=== PATIENT | female | born 1990 | race Caucasian/White ===

== ENCOUNTER 2024-01-01 15:37 | Emergency (ER) | payer MEDICARE, MEDICAID, SELFPAY ==
[2024-01-01] VITALS (22 sets, daily range): BP systolic 134–155; BP diastolic 75–94; PULSE 71–103; RESP 14; TEMP 37.1; O2SAT 96–100; BMI 23.6
--- NOTE | 2024-01-01 17:38 | ED_ITS ---
HPI - General Adult General Date Seen: 01/01/24 Chief complaint: Diabetic Related Problem Stated complaint: Type 1 diabetic, high and fluctuating blood sugar Time Seen by Provider: 01/01/24 17:12 Source: patient Mode of arrival: ambulatory Limitations: no limitations History of Present Illness HPI narrative: Patient is a 33-year-old female was a type 1 diabetic presenting to the emergency department for diabetic issues. She states for the past few days she has been relatively brittle diabetic. She has insulin pump along with giving herself basal doses of insulin every day. States her blood sugars you she to between 80 and 140 with states a couple days ago she cannot get her blood sugar much higher than 100 despite he heavy carpet today. All this was little concerning for her lino think too much about it up until the next day when it continued and then last night her blood sugar suddenly jumped to 190 despite not eating any carbs that night. She checked her insulin pump and has been still given her the correct amount of insulin. This has persisted to today. 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 She continued to try and stay at home to see how she was feeling but has been having worsening nausea, which she states she does have nausea at baseline and no nausea medications help, and overall his not feeling well. She is concerned she is dehydrated. Denies headache, chest pains, shortness of breath, abdominal pains, dysuria, vaginal discharge or bleeding, weakness, numbness. No other concerns noted at this time. Related Data Home Medications ?Medication ?Instructions ?Recorded ?Confirmed blood-glucose sensor (Dexcom G6 #1 ea 03/23/23 01/01/24 Sensor device) blood-glucose transmitter (Dexcom #1 ea 03/23/23 01/01/24 G6 Transmitter device) insulin lispro 100 unit/mL 60 - 80 unit subcut DAILY 03/23/23 01/01/24 subcutaneous solution (Humalog U-100 Insulin) clonidine HCl 0.1 mg tablet 0.1 mg PO BID 01/01/24 01/01/24 lamotrigine 200 mg tablet 200 mg PO DAILY 01/01/24 01/01/24 lamotrigine 25 mg tablet mg PO 01/01/24 metoclopramide HCl 5 mg tablet 5 mg PO QID 01/01/24 01/01/24 omeprazole 40 mg capsule,delayed 40 mg PO BID 01/01/24 01/01/24 release ondansetron 4 mg disintegrating 4 mg PO Q8H PRN 01/01/24 01/01/24 tablet prochlorperazine 25 mg rectal mg ME 01/01/24 suppository spironolactone 50 mg tablet 50 mg PO QAM 01/01/24 01/01/24 Allergies Allergy/AdvReac Type Severity Reaction Status Date / Time Sulfa (Sulfonamide Allergy Verified 01/01/24 15:54 Antibiotics) Review of Systems Status of ROS: Reports: 10 or more systems reviewed and unremarkable except as noted in History and below [facility] Social History Smoking Status: Never smoker How often do you have a drink containing alcohol: 2-4 times a month AUDIT-C Alcohol total score: 2 Non-prescribed substance use: marijuana (any form) Exam Narrative: Exam Narrative: Const: Well-nourished, Well-developed, in mild distress Eyes: PERRL, no conjunctival injection, and symmetrical lids HENT: Atraumatic external nose and ears. Moist mucous membranes. Neck: Symmetric, trachea midline, No thyromegaly. CVS: RRR, No murmurs or gallops. Peripheral pulses 2+ and equal in all extremities RESP: Unlabored respiratory effort. Clear to auscultation bilaterally. GI: Nontender/Nondistended, No rebound or guarding. MSK:Extremities w/o deformity, Normal Active ROM Skin: Warm, Dry. No rashes or lesions. Neuro: Normal Muscle tone, No focal neurological deficits. Psych: Awake, Alert, & Oriented x3. Appropriate mood and affect. Const: Vital Signs, click to edit/add: Vital Signs - 24 hr 01/01/24 15:44 01/01/24 17:13 01/01/24 17:14 Temperature 98.7 F Pulse Rate 97 98 Pulse Rate [Pulse Oximeter] 97 Respiratory Rate 14 Blood Pressure 144/92 H Blood Pressure [Ri ght Upper Arm] 143/88 H Pulse Oximetry 97 100 100 01/01/24 17:15 01/01/24 17:30 01/01/24 17:31 Temperature Pulse Rate 96 103 H 99 Pulse Rate [Pulse Oximeter] Respiratory Rate Blood Pressure 146/87 H Blood Pressure [Ri ght Upper Arm] Pulse Oximetry 100 100 100 01/01/24 17:47 01/01/24 18:00 01/01/24 18:07 Temperature Pulse Rate 72 71 84 Pulse Rate [Pulse Oximeter] Respiratory Rate Blood Pressure 134/75 Blood Pressure [Ri ght Upper Arm] Pulse Oximetry 100 100 100 Course Vital Signs Vital signs: Initial Vital Signs Temperature 98.7 F 01/01/24 15:44 Temperature Source Temporal Artery Scan 01/01/24 15:44 Pulse Rate 97 01/01/24 15:44 Respiratory Rate 14 01/01/24 15:44 Blood Pressure 143/88 H 01/01/24 15:44 Blood Pressure Mean 106 H 01/01/24 15:44 Blood Pressure Position Sitting 01/01/24 15:44 Pulse Oximetry 97 01/01/24 15:44 Vital Signs Temperature 98.7 F 01/01/24 15:44 Pulse Rate 97 01/01/24 15:44 Respiratory Rate 14 01/01/24 15:44 Blood Pressure 143/88 H 01/01/24 15:44 Pulse Oximetry 97 01/01/24 15:44 Temperature 98.7 F 01/01/24 15:44 Pulse Rate 84 01/01/24 18:07 Respiratory Rate 14 01/01/24 15:44 Blood Pressure 134/75 01/01/24 18:07 Pulse Oximetry 100 01/01/24 18:07 Medications Administered Medications: Generic Name Dose Route Start Last Admin Trade Name Freq PRN Reason Stop Dose Admin Lactated Ringer's 1,000 mls @ 1,000 mls/hr 01/01/24 19:09 01/01/24 19:21 Lactated Ringers 1000 Ml IV 01/01/24 20:08 1,000 mls/hr .Q1H ONE Administration Discontinued Medications Generic Name Dose Route Start Last Admin Trade Name Freq PRN Reason Stop Dose Admin Lactated Ringer's 1,000 mls @ 1,000 mls/hr 01/01/24 17:27 01/01/24 19:15 Lactated Ringers 1000 Ml IV 01/01/24 18:26 Infused .Q1H ONE Infusion Medical Decision Making MDM Narrative Medical decision making narrative: Patient is a 33-year-old female presenting for diabetes concern about dehydration. At this time seems very unlikely she is in DKA but I will do a VBG to look at her pH. Most order BMP, CBC, urinalysis, urine test. Also give her 1 L fluids. EKG done. Based on her description it seems like all for insert is being dosed appropriately but she is just having issues with her blood sugars being all over the place. High as they have been though been 190. Lab work all returned showing no concerning abnormalities. No signs of acidosis. She does have ketones in the urine but this is expected. She is not feeling much better after the 1 L fluid so we will give another L of fluids. At this point though she is stable and has follow-up already scheduled outpatient and can be discharged. She is agreeable to this plan. Lab Data Labs: Lab Results 01/01/24 01/01/24 Range/Units 17:42 18:00 WBC 10.97 (4.50-11.00) K/uL RBC 4.68 (4.00-5.20) m/uL Hgb 13.9 (12.0-16.0) gm/dL Hct 41.3 (33.0-51.0) % MCV 88 (80-100) fL MCH 30 (26-34) pg MCHC 34 (32-36) gm/dL RDW Coeff of Cherelle 12.1 (11.5-15.5) % Plt Count 285 (140-440) K/uL Neut % (Auto) 83.5 H (42.0-72.0) % Lymph % (Auto) 11.0 L (20-44) % [place] % (Auto) 4.7 (0.0-11.0) % Eos % (Auto) 0.2 (0.0-7.0) % Baso % (Auto) 0.5 (0.0-3.0) % Neut # (Auto) 9.20 H (1.7-7.0) K/uL Lymph # (Auto) 1.20 (0.90-2.90) K/uL [place] # (Auto) 0.50 (0.00-0.90) K/UL Eos # (Auto) 0.02 (0.00-0.50) K/uL Baso # (Auto) 0.05 (0.00-0.30) K/uL Abs Immat Gran (auto) 0.01 (0.00-0.30) K/uL Imm/Tot Granulo (auto) 0.1 % VBG pH 7.321 (7.32-7.43) VBG pCO2 42 (40-50) mmHG VBG pO2 41.7 (25-47) mmHG VBG HCO3 22 (21-28) mmol/L Sodium 136 (135-149) mmol/L Potassium 4.4 (3.6-5.1) mmol/L Chloride 102 (96-114) mmol/L Carbon Dioxide 19 L (20-32) mmol/L Anion Gap 15 (7-15) mEq/L BUN 13 (5-24) mg/dL Creatinine 0.6 (0.5-1.5) mg/dL Estimated Creat Clear 137.04 Estimated GFR 123 ml/min Glucose 163 H (60-115) mg/dL Calcium 9.4 (8.4-10.6) mg/dL Magnesium 1.9 (1.5-2.6) mg/dL Urine Color Yellow (Yellow) Urine Appearance Clear (Clear) Urine pH 5.5 (5.0-8.5) Ur Specific [place] >= 1.030 (1.000-1.030) Urine Protein 1+ A (Negative) Urine Glucose (UA) Negative (Negative) Urine Ketones 4+ A (Negative) Urine Blood Trace-intact A (Negative) Urine Nitrite Negative (Negative) Urine Bilirubin 2+ A (Negative) Urine Urobilinogen 0.2 (0.2-1.0) Ur Leukocyte Esterase Negative (Negative) Urine RBC 0-2 (0-2) Urine WBC 0-2 (0-5) Ur Squamous Epith Cells None (None-Few) Urine Bacteria None (None) Urine HCG, Qual Negative (Negative) ECG Data Attestation: I personally reviewed and interpreted this ECG as follows: Prior ECG tracings: not available for review Interpretation: Normal sinus rhythm with a rate of 90 beats wound, normal intervals, normal axis, no ST or T-wave abnormalities. Discharge Plan Discharge Clinical Impression: Diabetes Qualifiers: Diabetes mellitus type: type 1 Diabetes mellitus complication status: with other specified complication Qualified Code(s): E10.69 - Type 1 diabetes mellitus with other specified complication Patient Disposition: Home, Self-Care Condition: Stable Additional Instructions: Keep your follow-up appointment with endocrinology. Return to emergency depart ment for new or worsening symptoms. Prescriptions: No Action insulin lispro [Humalog U-100 Insulin] 100 unit/mL solution 60 - 80 unit subcut DAILY (DME) Dexcom G6 Sensor Device See Rx Instructions .ROUTE Q10D Qty: 1 Rx Instructions: As directed (DME) Dexcom G6 Transmitter Device See Rx Instructions .ROUTE [id number] Qty: 1 Rx Instructions: As directed clonidine HCl 0.1 mg tablet 0.1 mg PO BID lamotrigine 200 mg tablet 200 mg PO DAILY omeprazole 40 mg capsule,delayed release(DR/EC) 40 mg PO BID lamotrigine 25 mg tablet PO metoclopramide HCl 5 mg tablet 5 mg PO QID prochlorperazine 25 mg suppository ME ondansetron 4 mg tablet,disintegrating 4 mg PO Q8H PRN spironolactone 50 mg tablet 50 mg PO QAM Follow Up/Referrals: Provider,Not a Local [Non-Staff] - Stand Alone Forms: [facility] Info Instructions
[2024-01-01 17:51] LABS: Appearance Urine Clear (Clear); Bilirubin Urine 2+ (Negative); Blood Urine Trace-intact (Negative); Color Urine Yellow (Yellow); Glucose Urine Negative (Negative); Ketones Urine 4+ (Negative); Leukocyte Esterase Urine Negative (Negative); Nitrite Urine Negative (Negative); Protein Urine 1+ (Negative); Specific Gravity Urine >= 1.030 (1.000-1.030); Urobilinogen Urine 0.2 (0.2-1.0); pH Urine 5.5 (5.0-8.5)
[2024-01-01 17:52] LABS: Ur HCG Qualitative* Negative (Negative)
[2024-01-01] MEDS: LACTATED RINGERS 1000 ML 1,000 ML IV ×2 (18:05→19:21)
[2024-01-01 18:08] LABS: HCO3 VBG 22 mmol/L (21-28); PCO2 VBG 42 mmHG (40-50); PO2 VBG 41.7 mmHG (25-47); pH VBG 7.321 (7.32-7.43)
[2024-01-01 18:09] LABS: Basophils Absolute Auto 0.05 K/uL (0.00-0.30); Basophils Percent Auto 0.5 % (0.0-3.0); Eosinophils Absolute Auto 0.02 K/uL (0.00-0.50); Eosinophils Percent Auto 0.2 % (0.0-7.0); Hematocrit 41.3 % (33.0-51.0); Hemoglobin* 13.9 gm/dL (12.0-16.0); Immature Granulocytes Abs Auto 0.01 K/uL (0.00-0.30); Immature Granulocytes Pct Auto 0.1 %; Mean Corpuscular HGB Conc 34 gm/dL (32-36); Mean Corpuscular Hemoglobin 30 pg (26-34); Mean Corpuscular Volume 88 fL (80-100); Monocytes Percent Auto 4.7 % (0.0-11.0); Neutrophils Percent Auto 83.5 % (42.0-72.0); Platelet Count* 285 K/uL (140-440); RDW Coefficient of Variation % 12.1 % (11.5-15.5); Red Blood Count 4.68 m/uL (4.00-5.20); White Blood Count* 10.97 K/uL (4.50-11.00)
[2024-01-01 18:10] LABS: Slide Review Reflex No
[2024-01-01 18:19] LABS: RBC Urine 0-2 (0-2); WBC Urine 0-2 (0-5)
[2024-01-01 18:23] LABS: Chloride* 102 mmol/L (96-114); Potassium* 4.4 mmol/L (3.6-5.1); Sodium* 136 mmol/L (135-149)
[2024-01-01 18:26] LABS: Anion Gap 15 mEq/L (7-15); Blood Urea Nitrogen* 13 mg/dL (5-24); Carbon Dioxide* 19 mmol/L (20-32); Creatinine* 0.6 mg/dL (0.5-1.5); Est. Creatinine Clearance* 137.04; Estimated Glomerular Filt Rate 123 ml/min; Glucose* 163 mg/dL (60-115)
[2024-01-01 18:27] LABS: Calcium* 9.4 mg/dL (8.4-10.6)
[2024-01-01 18:29] LABS: Magnesium* 1.9 mg/dL (1.5-2.6)
== END 2024-01-01 20:11 | disposition home or self-care (01) ==
PROVIDERS: Emergency Provider Student in an Organized Health Care Education/Training Program; PCP Family Medicine
DX: E10.69 Type 1 diabetes mellitus with other specified complication (principal)
CPT/HCPCS: 36415; 80048; 81001; 81025; 82803; 82962; 83735; 85025; 93005; 99283; 99284; J7120

== ENCOUNTER 2024-01-10 17:40 | Observation (INO) | payer MEDICARE, MEDICAID, SELFPAY ==
[2024-01-10 17:43] VITALS: BP 124/87; PULSE 118; RESP 18; TEMP 36.7; O2SAT 100; BMI 23.5
--- NOTE | 2024-01-10 18:10 | ED_ITS ---
HPI - General Adult General Chief complaint: Diabetic Related Problem Stated complaint: type 1 diabetic, very high keytones Time Seen by Provider: 01/10/24 17:49 History of Present Illness HPI narrative: Patient is a 33-year-old woman who has insulin-dependent diabetes mellitus. She uses a sensing insulin pump and has been having very retic blood sugar. Patient's case is complicated by diabetic gastroparesis which I encouraged her not to eat regularly she does not really process food very well. Patient has had no symptomatic lows no symptomatic eyes but has trouble that her low sometimes get to 60 and her highs get to 350. She states she is not she was here actually week ago and had a negative test. She has no pain polyuria polydipsia polyphagia chest pain or shortness of breath. She is otherwise feeling well but is very emotional. Related Data Home Medications ?Medication ?Instructions ?Recorded ?Confirmed blood-glucose sensor (Dexcom G6 #1 ea 03/23/23 01/01/24 Sensor device) blood-glucose transmitter (Dexcom #1 ea 03/23/23 01/01/24 G6 Transmitter device) insulin lispro 100 unit/mL 60 - 80 unit subcut DAILY 03/23/23 01/01/24 subcutaneous solution (Humalog U-100 Insulin) clonidine HCl 0.1 mg tablet 0.1 mg PO BID 01/01/24 01/01/24 lamotrigine 200 mg tablet 200 mg PO DAILY 01/01/24 01/01/24 lamotrigine 25 mg tablet mg PO 01/01/24 metoclopramide HCl 5 mg tablet 5 mg PO QID 01/01/24 01/01/24 omeprazole 40 mg capsule,delayed 40 mg PO BID 01/01/24 01/01/24 release ondansetron 4 mg disintegrating 4 mg PO Q8H PRN 01/01/24 01/01/24 tablet prochlorperazine 25 mg rectal mg [place] 01/01/24 suppository spironolactone 50 mg tablet 50 mg PO QAM 01/01/24 01/01/24 Allergies Allergy/AdvReac Type Severity Reaction Status Date / Time Sulfa (Sulfonamide Allergy Verified 01/01/24 15:54 Antibiotics) Review of Systems Status of ROS: Reports: 10 or more systems reviewed and unremarkable except as noted in History and below PFSH PFSH Social History Smoking Status: Never smoker How often do you have a drink containing alcohol: 2-4 times a month AUDIT-C Alcohol total score: 2 Non-prescribed substance use: marijuana (any form) Exam Narrative: Exam Narrative: EXAM GENERAL: Patient appears comfortable and well. EYES: No scleral icterus. LYMPH: No supraclavicular or cervical lymphadenopathy. SKIN: Visible skin seen during exam normal or with benign process only. EXT: No dependent lower extremity pedal edema. HEART: Regular rate and rhythm with no murmurs, rubs, or gallops. LUNGS: Clear to auscultation bilaterally with no crackles or wheezes. ABD: Soft, non tender, non distended. PSYCH: Good eye contact, speech is not pressured. Const: Vital Signs, click to edit/add: Vital Signs - 24 hr 01/10/24 17:43 Temperature 98.0 F Pulse Rate [Right Pulse Oximeter] 118 H Respiratory Rate 18 Blood Pressure [Ri ght Upper Arm] 124/87 Pulse Oximetry 100 Oxygen Delivery Me thod Room Air Course Course ED Course: Patient seen and examined. Basic metabolic panel UA venous blood gas and CBC pending. Vital Signs Vital signs: Initial Vital Signs Temperature 98.0 F 01/10/24 17:43 Temperature Source Temporal Artery Scan 01/10/24 17:43 Pulse Rate 118 H 01/10/24 17:43 Respiratory Rate 18 01/10/24 17:43 Blood Pressure 124/87 01/10/24 17:43 Blood Pressure Mean 99 01/10/24 17:43 Blood Pressure Position Sitting 01/10/24 17:43 Pulse Oximetry 100 01/10/24 17:43 Oxygen Delivery Method Room Air 01/10/24 17:43 Vital Signs Temperature 98.0 F 01/10/24 17:43 Pulse Rate 118 H 01/10/24 17:43 Respiratory Rate 18 01/10/24 17:43 Blood Pressure 124/87 01/10/24 17:43 Pulse Oximetry 100 01/10/24 17:43 Oxygen Delivery Method Room Air 01/10/24 17:43 Temperature 98.0 F 01/10/24 17:43 Pulse Rate 118 H 01/10/24 17:43 Respiratory Rate 18 01/10/24 17:43 Blood Pressure 124/87 01/10/24 17:43 Pulse Oximetry 100 01/10/24 17:43 Oxygen Delivery Method Room Air 01/10/24 17:43 Medical Decision Making [facility] Narrative Medical decision making narrative: Patient is a 33-year-old woman who has insulin-dependent diabetes is difficult to manage due to gastroparesis fasting and irregular use of her basal insulin. She presented week ago is somewhat acidotic at that time. She remains acidotic at this time with an anion gap of 18. This is consistent with diabetic ketoacidosis which I do not think will improve until we stop her insulin pump and start insulin drip with IV hydration. Patient will be admitted for further evaluation and treatment. Lab Data Labs: Lab Results 01/10/24 01/10/24 Range/Units 18:17 18:20 WBC 7.34 (4.50-11.00) K/uL RBC 5.08 (4.00-5.20) m/uL Hgb 14.9 (12.0-16.0) gm/dL Hct 44.6 (33.0-51.0) % MCV 88 (80-100) fL MCH 29 (26-34) pg MCHC 33 (32-36) gm/dL RDW Coeff of Cherelle 12.0 (11.5-15.5) % Plt Count 300 (140-440) K/uL Neut % (Auto) 72.5 H (42.0-72.0) % Lymph % (Auto) 18.3 L (20-44) % [place] % (Auto) 7.1 (0.0-11.0) % Eos % (Auto) 1.1 (0.0-7.0) % Baso % (Auto) 0.7 (0.0-3.0) % Neut # (Auto) 5.30 (1.7-7.0) K/uL Lymph # (Auto) 1.30 (0.90-2.90) K/uL [place] # (Auto) 0.50 (0.00-0.90) K/UL Eos # (Auto) 0.08 (0.00-0.50) K/uL Baso # (Auto) 0.05 (0.00-0.30) K/uL Abs Immat Gran (auto) 0.02 (0.00-0.30) K/uL Imm/Tot Granulo (auto) 0.3 % VBG pH 7.319 L (7.32-7.43) VBG pCO2 39 L (40-50) mmHG VBG pO2 < 30.1 (25-47) mmHG VBG HCO3 20 L (21-28) mmol/L Sodium 133 L (135-149) mmol/L Potassium 3.9 (3.6-5.1) mmol/L Chloride 98 (96-114) mmol/L Carbon Dioxide 17 L (20-32) mmol/L Anion Gap 18 H (7-15) mEq/L BUN 10 (5-24) mg/dL Creatinine 0.6 (0.5-1.5) mg/dL Estimated Creat Clear 132.11 Estimated GFR 123 ml/min Glucose 210 H (60-115) mg/dL Calcium 9.9 (8.4-10.6) mg/dL Total Bilirubin 0.9 (0.1-1.5) mg/dL AST 22 (12-35) U/L ALT 14 (4-35) U/L Alkaline Phosphatase 97 (40-150) U/L Total Protein 8.9 H (6.0-8.3) g/dL Albumin 5.5 H (3.3-5.0) g/dL Urine Color Yellow (Yellow) Urine Appearance Clear (Clear) Urine pH 6.0 (5.0-8.5) Ur Specific [place] >= 1.030 (1.000-1.030) Urine Protein 2+ A (Negative) Urine Glucose (UA) Negative (Negative) Urine Ketones 4+ A (Negative) Urine Blood Negative (Negative) Urine Nitrite Negative (Negative) Urine Bilirubin 3+ A (Negative) Urine Urobilinogen 0.2 (0.2-1.0) Ur Leukocyte Esterase Negative (Negative) Urine RBC 0-2 (0-2) Urine WBC 0-2 (0-5) Ur Squamous Epith Cells Many A (None-Few) Urine Bacteria Moderate A (None) Discharge Plan Discharge Clinical Impression: DKA (diabetic ketoacidosis) Patient Disposition: Admitted As Inpatient Condition: Stable Activity Level: Other Discharge Diet: Other Prescriptions: No Action insulin lispro [Humalog U-100 Insulin] 100 unit/mL solution 60 - 80 unit subcut DAILY (DME) Dexcom G6 Sensor Device See Rx Instructions .ROUTE Q10D Qty: 1 Rx Instructions: As directed (DME) Dexcom G6 Transmitter Device See Rx Instructions .ROUTE [id number] Qty: 1 Rx Instructions: As directed clonidine HCl 0.1 mg tablet 0.1 mg PO BID lamotrigine 200 mg tablet 200 mg PO DAILY omeprazole 40 mg capsule,delayed release(DR/EC) 40 mg PO BID lamotrigine 25 mg tablet PO metoclopramide HCl 5 mg tablet 5 mg PO QID prochlorperazine 25 mg suppository [place] ondansetron 4 mg tablet,disintegrating 4 mg PO Q8H PRN spironolactone 50 mg tablet 50 mg PO QAM Follow Up/Referrals: Delia Yu MD [Primary Care Provider] -
[2024-01-10 18:28] LABS: HCO3 VBG 20 mmol/L (21-28); PCO2 VBG 39 mmHG (40-50); PO2 VBG < 30.1 mmHG (25-47); pH VBG 7.319 (7.32-7.43)
[2024-01-10 18:30] LABS: Basophils Absolute Auto 0.05 K/uL (0.00-0.30); Basophils Percent Auto 0.7 % (0.0-3.0); Eosinophils Absolute Auto 0.08 K/uL (0.00-0.50); Eosinophils Percent Auto 1.1 % (0.0-7.0); Hematocrit 44.6 % (33.0-51.0); Hemoglobin* 14.9 gm/dL (12.0-16.0); Immature Granulocytes Abs Auto 0.02 K/uL (0.00-0.30); Immature Granulocytes Pct Auto 0.3 %; Lymphocytes Percent Auto 18.3 % (20-44); Mean Corpuscular HGB Conc 33 gm/dL (32-36); Mean Corpuscular Hemoglobin 29 pg (26-34); Mean Corpuscular Volume 88 fL (80-100); Monocytes Percent Auto 7.1 % (0.0-11.0); Neutrophils Percent Auto 72.5 % (42.0-72.0); Platelet Count* 300 K/uL (140-440); Red Blood Count 5.08 m/uL (4.00-5.20); White Blood Count* 7.34 K/uL (4.50-11.00)
[2024-01-10 18:32] LABS: Slide Review Reflex No
[2024-01-10 18:35] LABS: Appearance Urine Clear (Clear); Bilirubin Urine 3+ (Negative); Blood Urine Negative (Negative); Color Urine Yellow (Yellow); Glucose Urine Negative (Negative); Ketones Urine 4+ (Negative); Leukocyte Esterase Urine Negative (Negative); Nitrite Urine Negative (Negative); Protein Urine 2+ (Negative); Specific Gravity Urine >= 1.030 (1.000-1.030); Urobilinogen Urine 0.2 (0.2-1.0)
[2024-01-10 18:48] LABS: Albumin* 5.5 g/dL (3.3-5.0); Chloride* 98 mmol/L (96-114)
[2024-01-10 18:49] LABS: Potassium* 3.9 mmol/L (3.6-5.1); Sodium* 133 mmol/L (135-149)
[2024-01-10 18:50] LABS: Bacteria Urine Moderate; RBC Urine 0-2 (0-2); Squamous Epithelial Cell Urine Many (None-Few); WBC Urine 0-2 (0-5)
[2024-01-10 18:51] LABS: Anion Gap 18 mEq/L (7-15); Aspartate Amino Transferase* 22 U/L (12-35); Bilirubin Total* 0.9 mg/dL (0.1-1.5); Carbon Dioxide* 17 mmol/L (20-32); Creatinine* 0.6 mg/dL (0.5-1.5); Est. Creatinine Clearance* 132.11; Estimated Glomerular Filt Rate 123 ml/min; Total Protein* 8.9 g/dL (6.0-8.3)
[2024-01-10 18:52] LABS: Alanine Aminotransferase* 14 U/L (4-35); Alkaline Phosphatase* 97 U/L (40-150); Blood Urea Nitrogen* 10 mg/dL (5-24); Calcium* 9.9 mg/dL (8.4-10.6); Glucose* 210 mg/dL (60-115)
[2024-01-10 20:01] LABS: Glucose, Point-of-Care* 216 mg/dl (60-115)
[2024-01-10 20:02] VITALS: BP 120/78; PULSE 95; RESP 18; TEMP 36.7; O2SAT 100
[2024-01-10 20:04] VITALS: BP 120/78; PULSE 95; RESP 18; TEMP 36.7
[2024-01-10 21:19] VITALS: BP 137/90; PULSE 101; RESP 18; TEMP 36.6; O2SAT 96; BMI 23.7
[2024-01-10] MEDS: OMEPRAZOLE 20 MG CAPSULE DR 40 MG PO (22:08)
[2024-01-10] MEDS: METOCLOPRAMIDE 10 MG TABLET 5 MG PO (22:08)
[2024-01-10] MEDS: SODIUM CHLORIDE 0.9 % (FLUSH) 10 ML SYRINGE 5 ML IVF (22:09)
[2024-01-10] MEDS: cloNIDine HCL 0.1 MG TABLET PO (22:09)
--- NOTE | 2024-01-10 22:09 | P.IMHP_ITS ---
Hospitalist- H&P: HPI History of Present Illness Date Seen: 01/10/24 Chief complaint: type 1 diabetic, very high keytones Narrative: Lucia Villatoro is a 33 year old female with type 1 diabetes admitted through the emergency department with recent difficulties with blood sugar control and now high ketones in her urine. She reports she has a dry mouth. She has not had polyuria. She has not had recent illness, cough, fever, sore throat, nausea, vomiting, diarrhea, urinary problems. She has type 1 diabetes managed by an inventory specialist with [facility] in [place]. She has an insulin pump which she is connected to her continuous glucose monitor. She tells me these are both functioning normally. She has turned off the programming on her insulin pump because she is afraid of hypoglycemia. She tells me that all of her medical providers are concerned about hyperglycemia but she is primarily concerned about hypoglycemia. She has not had hypoglycemia symptoms. She tells me her last low blood sugar was 85 last week. She had no symptoms at that time but she typically has no symptoms of hypoglycemia. She tells me that it took 3 carbs to get her blood sugar over 100 on that occasion. For the past 2 weeks she has been eating almost no carbs. She has had a couple eggs on occasion. When I asked her why she stopped eating carbs she tells me that she is afraid of low blood sugars. She explained that if she ate her carbs then she would have to give herself extra insulin to cover the carbs. If she gave herself extra insulin then she was worried she would have hypoglycemia. She tells me that her CGM is set to alarm for a blood sugar below 100. Previous ly was set at 80. Her insulin pump program is set to keep her blood sugar at a minimum of 160 (exercise mode). She does not trust the programs to protect her from hypoglycemia. She is also concerned that it is taking too many carbs to recover from low blood sugars. When she checked her urine and found it had high ketones she was told to come to the emergency department for evaluation for suspected DKA. She reports the changes she has made over the past 2 weeks are because she has been so anxious and upset about the possibility of low blood sugars. She does have a history of diabetic complications including diabetic gastroparesis and diabetic retinopathy She has a history of anxiety, eating disorder, bipolar type 2. Medical records indicate a history of alcohol use disorder and medical cannabis use. Review of Systems Narrative: Reported palpitations. Has a Zio patch on to evaluate. PFSH [facility] Medical History (Updated 01/10/24 @ 22:45 by Lee Foster MD) Depression ?F32.A - Depression, unspecified (ICD-10) Anxiety ?F41.9 - Anxiety disorder, unspecified (ICD-10) Eating disorder ?F50.9 - Eating disorder, unspecified (ICD-10) Medical cannabis use ?Z79.899 - Other long term care phlebotomist (current) drug therapy (ICD-10) Alcohol use disorder ?F10.90 - Alcohol use, unspecified, uncomplicated (ICD-10) Hyperlipidemia ?E78.5 - Hyperlipidemia, unspecified (ICD-10) Bipolar 2 disorder ?F31.81 - Bipolar II disorder (ICD-10) Diabetic gastroparesis ?E11.43 - Type 2 diabetes mellitus with diabetic autonomic (poly)neuropathy (ICD-10) ?K31.84 - Gastroparesis (ICD-10) Diabetic retinopathy ?E11.319 - Type 2 diabetes mellitus with unspecified diabetic retinopathy without macular edema (ICD-10) Type 1 diabetes mellitus ?E10.9 - Type 1 diabetes mellitus without complications (ICD-10) Surgical History (Updated 01/10/24 @ 22:36 by Lee Foster MD) History of esophagogastroduodenoscopy (EGD) ?Z98.890 - Other specified postprocedural states (ICD-10) Social History (Updated 01/10/24 @ 22:40 by Lee Foster MD) Narrative: She lives in [place]. She drinks alcohol occasionally. Uses cannabis daily. Previously used E cigarettes. Does not currently smoke. What is your current living situation?: I presently have a place to live Problems where you live: no known problems Problems where you live details: N/A In the past 12 months, utilities in danger of being shut off: no In past 12 months, lack of transportation kept you from medical appts, meetings, work, or getting things needed for daily living: no In the past 12 mos, have been you worried that your food would run out before you had money to buy more?: never true In the past 12 mos, the food you bought just didn't last and you didn't have money to buy more?: never true Highest level of school completed/degree received: some college, no degree Smoking Status: Never smoker Do you use any of these nicotine containing products: None How often do you have a drink containing alcohol: 2-4 times a month Alcohol type: beer How often do you have six or more drinks on one occasion: Never AUDIT-C Alcohol total score: 2 Non-prescribed substance use: marijuana (any form) How often does anyone, including family, friends and others, physically hurt you : never How often does anyone, including family, friends and others, insult or talk down to you: never How often does anyone, including family, friends and others, threaten you with harm: never How often does anyone, including family, friends and others, scream or curse at you: never service: No Meds Home Medications and Allergies Home Medications ?Medication ?Instructions ?Recorded ?Confirmed ?Type blood-glucose sensor (Dexcom G6 #1 ea 03/23/23 01/01/24 History Sensor device) blood-glucose transmitter (Dexcom #1 ea 03/23/23 01/01/24 History G6 Transmitter device) insulin lispro 100 unit/mL 60 - 80 unit subcut DAILY 03/23/23 01/01/24 History subcutaneous solution (Humalog U-100 Insulin) clonidine HCl 0.1 mg tablet 0.1 mg PO BID 01/01/24 01/01/24 History lamotrigine 200 mg tablet 200 mg PO DAILY 01/01/24 01/01/24 History lamotrigine 25 mg tablet mg PO 01/01/24 History metoclopramide HCl 5 mg tablet 5 mg PO QID 01/01/24 01/01/24 History omeprazole 40 mg capsule,delayed 40 mg PO BID 01/01/24 01/01/24 History release ondansetron 4 mg disintegrating 4 mg PO Q8H PRN 01/01/24 01/01/24 History tablet prochlorperazine 25 mg rectal mg NC 01/01/24 History suppository spironolactone 50 mg tablet 50 mg PO QAM 01/01/24 01/01/24 History Allergies Allergy/AdvReac Type Severity Reaction Status Date / Time Sulfa (Sulfonamide Allergy Verified 01/01/24 15:54 Antibiotics) Exam Narrative: Exam Narrative: She is alert and appears in no distress. Intermittently tearful as she discusses her concerns about diabetes management. Speech is normal. Normal mentation and thought processes.. Mood and affect are congruent. Pleasant and cooperative. Eyes normal. Oropharynx normal. Neck is supple without mass or adenopathy. Respirations are clear to auscultation. Cardiovascular: S1, S2, regular rate and rhythm. No murmur gallop or rub. Abdomen: Bowel sounds acti ve. Abdomen is soft without tenderness. Extremities with intact pedal pulses, good perfusion, warm to touch no rash Const: Vital Signs, click to edit/add: Vital Signs - 24 hr 01/10/24 17:43 01/10/24 20:02 01/10/24 20:04 Temperature 98.0 F 98.0 F 98.0 F Pulse Rate [Left P ulse Oximeter] Pulse Rate [Right Pulse Oximeter] 118 H 95 95 Respiratory Rate 18 18 18 Blood Pressure [Ri ght Arm] Blood Pressure [Ri ght Upper Arm] 124/87 120/78 120/78 Pulse Oximetry 100 100 Oxygen Delivery Me thod Room Air Room Air 01/10/24 21:19 Temperature 97.9 F Pulse Rate [Left P ulse Oximeter] 101 H Pulse Rate [Right Pulse Oximeter] Respiratory Rate 18 Blood Pressure [Ri ght Arm] 137/90 H Blood Pressure [Ri ght Upper Arm] Pulse Oximetry 96 Oxygen Delivery Me thod Room Air Documenting provider has reviewed patient's vital signs: yes Hospitalist - H&P: Result Labs Labs: Short CBC 01/10/24 Range/Units 18:17 WBC 7.34 (4.50-11.00) K/uL Hgb 14.9 (12.0-16.0) gm/dL Hct 44.6 (33.0-51.0) % Plt Count 300 (140-440) K/uL BMP 01/10/24 18:17 Sodium 133 L Potassium 3.9 Chloride 98 Carbon Dioxide 17 L BUN 10 Creatinine 0.6 Glucose 210 H Calcium 9.9 Liver Function 01/10/24 Range/Units 18:17 Total Bilirubin 0.9 (0.1-1.5) mg/dL AST 22 (12-35) U/L ALT 14 (4-35) U/L Alkaline Phosphatase 97 (40-150) U/L Albumin 5.5 H (3.3-5.0) g/dL Urine 01/10/24 Range/Units 18:20 Urine Color Yellow (Yellow) Urine Appearance Clear (Clear) Urine pH 6.0 (5.0-8.5) Ur Specific [place] >= 1.030 (1.000-1.030) Urine Protein 2+ A (Negative) Urine Glucose (UA) Negative (Negative) ECG Attestation: I personally reviewed and interpreted this ECG as follows: (Normal electrocardiogram) ECG interpretation date: 01/10/24 Assessment and Plan Assessment and plan (1) Starvation ketoacidosis: Status: Acute (2) DKA (diabetic ketoacidosis): Status: Acute (3) Type 1 diabetes mellitus: Status: Acute (4) Ketoacidosis: Problem comment: Patient presents with ketoacidosis. I am concerned this is at least in part related to starvation but also caused by diabetes. Status: Acute Plan Patient presents with ketoacidosis. I favor this being more starvation ketoacidosis than diabetic ketoacidosis. Probably both contributing. Because of patient anxiety about any risk for hypoglycemia she has not been following her inventory specialist plan. My recommendation tonight is that we reinstitute the use of the inventory specialist plan including using the insulin pump on a program for activity with a goal of keeping the blood sugar at 160, resuming a normal diet including carbohydrates and bolus insulin based on carb counting. Plan of care is discussed with the patient and she is agreeable to this. Total Time Spent Total Time Spent: Total time spent today is 90 minutes in evaluation management and discussion with patient, her friend and other providers management of ketoacidosis and diabetes
[2024-01-10] MEDS: lamoTRIgine 25 MG TABLET 250 MG PO (22:10)
[2024-01-10 22:17] VITALS: BP 139/90; PULSE 95; RESP 18; TEMP 36.6; O2SAT 99
[2024-01-10 23:00] VITALS: PULSE 101
[2024-01-11 03:00] VITALS: BP 121/87; PULSE 96; RESP 18; TEMP 36.8; O2SAT 98
--- NOTE | 2024-01-11 04:33 | PC.NURSE ---
Addendum entered by Feng Marks RN 01/11/24 06:32: Blood glucose checked with corresponding insulin given per insulin pump 2217 - 0.109 unit (Blood glucose 162) 0057 - 0.37 unit (Blood glucose 161) 0214 - 0.69 unit (Blood glucose 168) 0316 - 0.5 unit (Blood glucose 168) 0400 - 0.75 unit (Blood glucose 157) Original Note: Shift note: [facility] on account of seeing ketones in her urine as known DM pt. Pt was alert and oriented on arrival. She stated that she has not been eat solid food for more than a week and feels anxious, nauseated, and fatigue. Pt added that she has chronic dizziness so cannot determine if dizziness on admission is related to her current state of condition. Blood sugar checked on admission was 179 and pt gave herself insulin per insulin pump order. Pt has well function insulin pump and freestyle blood glucose monitor which she manages. Blood glucose monitored hourly throughout the night and charted. Pt asked to have bread toast and peanut butter. She ended up eating 2 slides of bread toast with 1 cup of peanut butter. Due treatment given and pt finally fell asleep at 0100. Pt had tachycardia on admission but HR stabilized later during the night.
[2024-01-11 07:09] LABS: HCO3 VBG 22 mmol/L (21-28); PCO2 VBG 42 mmHG (40-50); PO2 VBG 35.1 mmHG (25-47); pH VBG 7.316 (7.32-7.43)
[2024-01-11 07:25] LABS: Chloride* 102 mmol/L (96-114); Potassium* 3.7 mmol/L (3.6-5.1); Sodium* 136 mmol/L (135-149)
[2024-01-11 07:28] LABS: Anion Gap 15 mEq/L (7-15); Blood Urea Nitrogen* 9 mg/dL (5-24); Calcium* 9.6 mg/dL (8.4-10.6); Carbon Dioxide* 19 mmol/L (20-32); Creatinine* 0.6 mg/dL (0.5-1.5); Est. Creatinine Clearance* 132.11; Estimated Glomerular Filt Rate 123 ml/min; Glucose* 112 mg/dL (60-115)
[2024-01-11 07:30] VITALS: BP 117/83; PULSE 87; RESP 18; TEMP 36.7; O2SAT 100
[2024-01-11] MEDS: ONDANSETRON 2 MG/ML inj 4 MG IVP (07:37)
[2024-01-11 07:45] VITALS: BP 117/83; PULSE 87; RESP 18; TEMP 36.7; O2SAT 100
[2024-01-11] MEDS: SPIRONOLACTONE 25 MG TABLET 50 MG PO (09:10)
[2024-01-11] MEDS: OMEPRAZOLE 20 MG CAPSULE DR 40 MG PO (09:10)
[2024-01-11] MEDS: METOCLOPRAMIDE 10 MG TABLET 5 MG PO ×2 (09:10→11:49)
[2024-01-11] MEDS: cloNIDine HCL 0.1 MG TABLET PO (09:10)
[2024-01-11] MEDS: SODIUM CHLORIDE 0.9 % (FLUSH) 10 ML SYRINGE 5 ML IVF (09:11)
[2024-01-11 10:17] VITALS: PULSE 87; RESP 18
[2024-01-11 11:21] LABS: HCO3 VBG 21 mmol/L (21-28); PCO2 VBG 38 mmHG (40-50); PO2 VBG < 30.1 mmHG (25-47); pH VBG 7.349 (7.32-7.43)
[2024-01-11 11:37] LABS: Chloride* 97 mmol/L (96-114); Potassium* 4.1 mmol/L (3.6-5.1); Sodium* 131 mmol/L (135-149)
[2024-01-11 11:39] LABS: Creatinine* 0.6 mg/dL (0.5-1.5); Est. Creatinine Clearance* 132.11; Estimated Glomerular Filt Rate 123 ml/min
[2024-01-11 11:40] LABS: Anion Gap 16 mEq/L (7-15); Blood Urea Nitrogen* 9 mg/dL (5-24); Calcium* 9.4 mg/dL (8.4-10.6); Carbon Dioxide* 18 mmol/L (20-32); Glucose* 253 mg/dL (60-115)
--- NOTE | 2024-01-11 12:19 | PM.DS1 ---
DS: Providers Provider Date Seen: 01/11/24 Date of admission: 01/10/24 20:02 Primary care physician: Delia Yu MD Admitting Clinician: Lee Foster MD Attending Physician on discharge: Esther Enrique MD Date of Discharge: 01/11/24 DS: Diagnosis Discharge Diagnosis (1) Ketoacidosis: Status: Acute Problem details: Patient presents with ketoacidosis. I am concerned this is at least in part related to starvation but also caused by diabetes. (2) Starvation ketoacidosis: Status: Acute (3) Ketosis: Status: Acute Problem details: Patient presents with ketosis. Unclear if this is primarily starvation ketosis from restricting carbohydrates and food in general verses diabetic ketoacidosis or both (4) Type 1 diabetes mellitus: Status: Acute DS: Summary Hospital Course Hospital Course: Per H&P: Lucia Villatoro is a 33 year old female with type 1 diabetes admitted through the emergency department with recent difficulties with blood sugar control and now high ketones in her urine. She reports she has a dry mouth. She has not had polyuria. She has not had recent illness, cough, fever, sore throat, nausea, vomiting, diarrhea, urinary problems. She has type 1 diabetes managed by an mechanical applications engineer with [facility] in [place]. She has an insulin pump which she is connected to her continuous glucose monitor. She tells me these are both functioning normally. She has turned off the programming on her insulin pump because she is afraid of hypoglycemia. She tells me that all of her medical providers are concerned about hyperglycemia but she is primarily concerned about hypoglycemia. She has not had hypoglycemia symptoms. She tells me her last low blood sugar was 85 last week. She had no symptoms at that time but she typically has no symptoms of hypoglycemia. She tells me that it took 3 carbs to get her blood sugar over 100 on that occasion. For the past 2 weeks she has been eating almost no carbs. She has had a couple eggs on occasion. When I asked her why she stopped eating carbs she tells me that she is afraid of low blood sugars. She explained that if she ate her carbs then she would have to give herself extra insulin to cover the carbs. If she gave herself extra insulin then she was worried she would have hypoglycemia. She tells me that her CGM is set to alarm for a blood sugar below 100. Previously was set at 80. Her insulin pump program is set to keep her blood sugar at a minimum of 160 (exercise mode). She does not trust the programs to protect her from hypoglycemia. She is also concerned that it is taking too many carbs to recover from low blood sugars. When she checked her urine and found it had high ketones she was told to come to the emergency department for evaluation for suspected DKA. She reports the changes she has made over the past 2 weeks are because she has been so anxious and upset about the possibility of low blood sugars. She does have a history of diabetic complications including diabetic gastroparesis and diabetic retinopathy She has a history of anxiety, eating disorder, bipolar type 2. Medical records indicate a history of alcohol use disorder and medical cannabis use. Overnight she has been using her insulin pump as recommended by her mechanical applications engineer. She ate peanut butter and toast last evening and had 75% of her breakfast this morning. BG has been 120-240, mostly in the 150's. She was mildly acidotic yet this morning even though BG's were consistently in the 150's overnight. She ate well this morning and BG at 11 am was 253 and she had resolution of acidosis by the time 11 am labs were drawn. I, too, favor starvation ketoacidosis instead of diabetic ketoacidosis. She again said that she was worried about hypoglycemia, although she has not had symptoms of it and her sugars at home are never below 80. We discussed her diet and she told me that she is vegetarian. She is getting very little protein in her diet. We discussed vegetarian protein sources and made a list of these for her to take a picture of to choose from and incorporate a little more protein into each meal/snack. These included: beans, lentils, tofu/soy, tempeh, quinoa, eggs, peanut butter, nuts, seeds, cheese. She agreed with outpatient plan to eat regular meals/snacks with protein and carbs, follow carb counting, follow endocrinologists recommendations for insulin regimen/pump settings and to call endocrinology on Friday to set up an appointment this week to discuss her concerns about lows and her regimen. Time Spent with Patient Time attestation: Total time spent providing and/or coordinating discharge services: Exam Narrative: Exam Narrative: General: No acute distress. Awake, alert, oriented x3. No pallor. No jaundice. Oropharynx: Clear. Mucous membranes moist. Cardiovascular: Regular rate and rhythm. No murmurs, gallops, or rubs. Respiratory: Clear to auscultation bilaterally. No wheezes or crackles. Abdomen: Bowel sounds present. Soft, nondistended, nontender. Extremities: No pedal edema. Const: Vital Signs, click to edit/add: Vital Signs - 24 hr 01/10/24 17:43 01/10/24 20:02 01/10/24 20:04 Temperature 98.0 F 98.0 F 98.0 F Pulse Rate Pulse Rate [Left P ulse Oximeter] Pulse Rate [Right Pulse Oximeter] 118 H 95 95 Respiratory Rate 18 18 18 Blood Pressure [Ri ght Arm] Blood Pressure [Ri ght Upper Arm] 124/87 120/78 120/78 Pulse Oximetry 100 100 Oxygen Delivery Al thod Room Air Room Air 01/10/24 21:19 01/10/24 22:17 01/10/24 22:17 Temperature 97.9 F 97.9 F Pulse Rate Pulse Rate [Left P ulse Oximeter] 101 H 95 95 Pulse Rate [Right Pulse Oximeter] Respiratory Rate 18 18 18 Blood Pressure [Ri ght Arm] 137/90 H 139/90 H Blood Pressure [Ri ght Upper Arm] Pulse Oximetry 96 99 Oxygen Delivery Me thod Room Air Room Air 01/10/24 23:00 01/11/24 03:00 01/11/24 07:30 Temperature 98.3 F 98.1 F Pulse Rate 101 H Pulse Rate [Left P ulse Oximeter] 96 87 Pulse Rate [Right Pulse Oximeter] Respiratory Rate 18 18 Blood Pressure [Ri ght Arm] 121/87 117/83 Blood Pressure [Ri ght Upper Arm] Pulse Oximetry 98 100 Oxygen Delivery Al thod Room Air Room Air 01/11/24 07:45 01/11/24 10:17 Temperature 98.1 F Pulse Rate Pulse Rate [Left P ulse Oximeter] 87 87 Pulse Rate [Right Pulse Oximeter] Respiratory Rate 18 18 Blood Pressure [Ri ght Arm] 117/83 Blood Pressure [Ri ght Upper Arm] Pulse Oximetry 100 Oxygen Delivery Al thod Room Air DS: Data Data Completed and Pending Completed studies during hospitalization: 01/10/2024 EKG: Normal sinus rhythm, 98 beats per minute, normal EKG. Labs on day of discharge: Labs from last 24 hours 01/11/24 01/11/24 01/10/24 11:15 07:03 20:00 WBC RBC Hgb Hct MCV MCH MCHC RDW Coeff of Cherelle Plt Count Neut % (Auto) Lymph % (Auto) [place] % (Auto) Eos % (Auto) Baso % (Auto) Neut # (Auto) Lymph # (Auto) [place] # (Auto) Eos # (Auto) Baso # (Auto) Abs Immat Gran (auto) Imm/Tot Granulo (auto) VBG pH 7.349 7.316 L VBG pCO2 38 L 42 VBG pO2 < 30.1 35.1 VBG HCO3 21 22 Sodium 131 L 136 Potassium 4.1 3.7 Chloride 97 102 Carbon Dioxide 18 L 19 L Anion Gap 16 H 15 BUN 9 9 Creatinine 0.6 0.6 Estimated Creat Clear 132.11 132.11 Estimated GFR 123 123 Glucose 253 H 112 Calcium 9.4 9.6 Total Bilirubin AST ALT Alkaline Phosphatase Total Protein Albumin TSH 3.690 Urine Color Urine Appearance Urine pH Ur Specific [place] Urine Protein Urine Glucose (UA) Urine Ketones Urine Blood Urine Nitrite Urine Bilirubin Urine Urobilinogen Ur Leukocyte Esterase Urine RBC Urine WBC Ur Squamous Epith Cells Urine Bacteria POC Glucose 216 H 01/10/24 01/10/24 18:20 18:17 WBC 7.34 RBC 5.08 Hgb 14.9 Hct 44.6 MCV 88 MCH 29 MCHC 33 RDW Coeff of Cherelle 12.0 Plt Count 300 Neut % (Auto) 72.5 H Lymph % (Auto) 18.3 L [place] % (Auto) 7.1 Eos % (Auto) 1.1 Baso % (Auto) 0.7 Neut # (Auto) 5.30 Lymph # (Auto) 1.30 [place] # (Auto) 0.50 Eos # (Auto) 0.08 Baso # (Auto) 0.05 Abs Immat Gran (auto) 0.02 Imm/Tot Granulo (auto) 0.3 VBG pH 7.319 L VBG pCO2 39 L VBG pO2 < 30.1 VBG HCO3 20 L Sodium 133 L Potassium 3.9 Chloride 98 Carbon Dioxide 17 L Anion Gap 18 H BUN 10 Creatinine 0.6 Estimated Creat Clear 132.11 Estimated GFR 123 Glucose 210 H Calcium 9.9 Total Bilirubin 0.9 AST 22 ALT 14 Alkaline Phosphatase 97 Total Protein 8.9 H Albumin 5.5 H TSH Urine Color Yellow Urine Appearance Clear Urine pH 6.0 Ur Specific [place] >= 1.030 Urine Protein 2+ A Urine Glucose (UA) Negative Urine Ketones 4+ A Urine Blood Negative Urine Nitrite Negative Urine Bilirubin 3+ A Urine Urobilinogen 0.2 Ur Leukocyte Esterase Negative Urine RBC 0-2 Urine WBC 0-2 Ur Squamous Epith Cells Many A Urine Bacteria Moderate A POC Glucose Preliminary micro results at discharge 01/10/24 18:20 Urine Culture - Preliminary Urine Random Culture in Progress Discharge Plan Discharge Disposition: Home, Self-Care Date of Admission: 01/10/24 20:02 Attending Provider on Discharge: Esther Enrique Primary Care Provider: Delia Yu I Condition: Stable Anticipated Discharge Date/Time: 01/11/24 12:21 Discharge Medications: Continued insulin lispro [Humalog U-100 Insulin] 100 unit/mL solution 60 - 80 unit subcut DAILY (DME) Dexcom G6 Sensor Device See Rx Instructions .ROUTE [id number] Qty: 1 Rx Instructions: As directed (DME) Dexcom G6 Transmitter Device See Rx Instructions .ROUTE [id number] Qty: 1 Rx Instructions: As directed clonidine HCl 0.1 mg tablet 0.1 mg PO BID lamotrigine 200 mg tablet 200 mg PO HS Rx Instructions: plus 50 mg dose omeprazole 40 mg capsule,delayed release(DR/EC) 40 mg PO BID lamotrigine 25 mg tablet PO metoclopramide HCl 5 mg tablet 5 mg PO QID prochlorperazine 25 mg suppository NM ondansetron 4 mg tablet,disintegrating 4 mg PO Q8H PRN spironolactone 50 mg tablet 50 mg PO QAM clindamycin phosphate 1 % lotion 1 applic topical QAM Discharge Orders: Discharge Order (Routine); Ordered 01/11/24 Ordered By: Esther Enrique Additional Instructions: Endocrinology this week Activity Level: No Restrictions Discharge Diet: Diabetic Diet Detail: Try to get some protein with each meal. Carb count as per instructions from your mechanical applications engineer Follow Up Appointments: Delia Yu MD [Primary Care Provider] - (5-7 days) Forms: [facility] Info Instructions
[2024-01-11 12:26] VITALS: BP 146/93; PULSE 100; RESP 18; TEMP 36.8; O2SAT 99
--- NOTE | 2024-01-11 14:07 | PC.NURSE ---
End of Shift: Patient pleasant and cooperative, A&O. VSS, afebrile. Blood glucose monitored this shift via CGM, with insulin corrections as needed via insulin pump. Tolerating regular diet. Independent in room. IV removed with tip intact. Discharge instructions provided, all questions answered. Discharged to home at 1402.
== END 2024-01-11 14:02 | disposition home or self-care (01) ==
LOC: ED 19:16 → MEDSURG 20:03
PROVIDERS: Family Medicine; Admitting Provider Family Medicine; Emergency Provider Internal Medicine; PCP Family Medicine; Visit Provider Family Medicine
DX: E87.29 Other acidosis (principal); T73.0XXA Starvation, initial encounter; E88.89 Other specified metabolic disorders; R82.998 Other abnormal findings in urine; R82.4 Acetonuria; R68.2 Dry mouth, unspecified; K31.84 Gastroparesis; E10.9 Type 1 diabetes mellitus without complications; E78.5 Hyperlipidemia, unspecified; F31.81 Bipolar II disorder; Z68.23 Body mass index [BMI] 23.0-23.9, adult; F50.9 Eating disorder, unspecified; F12.90 Cannabis use, unspecified, uncomplicated; F10.90 Alcohol use, unspecified, uncomplicated; F41.9 Anxiety disorder, unspecified; K21.9 Gastro-esophageal reflux disease without esophagitis; Z79.4 Long term (current) use of insulin; Z79.899 Other long term (current) drug therapy; Z96.41 Presence of insulin pump (external) (internal); Z98.890 Other specified postprocedural states
CPT/HCPCS: 36415; 80048; 80053; 81001; 81003; 82803; 82947; 82962; 84443; 85025; 87086; 96374; 99283; 99284; G0378; A9270; J2405

== ENCOUNTER 2024-01-29 08:49 | Outpatient (CLI) | payer MEDICARE, MEDICAID, SELFPAY ==
--- NOTE | 2024-01-29 09:15 | CRLHL7_ITS ---
For Patients: As a result of the 21st Century Cures Act, medical imaging exams and procedure reports are released immediately into your electronic medical record. You may view this report before your referring provider. If you have questions, please contact your health care provider. INDICATION: Nausea, gastroparesis, diabetes type 1 COMPARISON 01/08/2023 TECHNIQUE 1.1 mCi Tc99m sulfur colloid in standard egg meal PO. Images of the stomach and abdomen were obtained in the anterior and posterior projection over 240 minutes. FINDINGS T 1/2 greater than 120 minutes. Geometric Mean Calculated % Activity Remainin minutes 100% 30 minutes 93% 60 minutes 97% 90 minutes 95% 120 minutes 89% 240 minutes 24% IMPRESSION Delayed gastric emptying is present with greater than 40 percent remaining at 120 minutes and greater than 10 percent remaining at 240 minutes. Also, T1/2 < 120 minutes. Previously, the T 1/2 was 94 minutes. Gastroparesis is more prominent when compared to the prior study. Dictated by Raheem Woods MD @ 01/30/2024 12:44:57 PM (Electronically Signed)
== END 2024-01-29 08:50 | disposition home or self-care (01) ==
LOC: NM 08:50
PROVIDERS: PCP Family Medicine; Visit Provider Internal Medicine Gastroenterology
DX: R11.0 Nausea (principal); K31.84 Gastroparesis
CPT/HCPCS: 78264; A9541

== ENCOUNTER 2024-02-11 14:43 | Inpatient (IN) | payer MEDICARE, MEDICAID, SELFPAY ==
[2024-02-11] VITALS (10 sets, daily range): BP systolic 90–135; BP diastolic 53–91; PULSE 94–124; RESP 16–20; TEMP 36.4–37.1; O2SAT 96–100; BMI 23.6
--- NOTE | 2024-02-11 14:57 | ED.GENADULT ---
HPI - General Adult General Time Seen by Provider: 14:57 Date Seen: 02/11/24 Chief complaint: Diabetic Related Problem Stated complaint: Type 1 diabetic w/ketones, vomiting Time Seen by Provider: 02/11/24 14:56 Source: patient and RN notes reviewed Mode of arrival: ambulatory Limitations: no limitations History of Present Illness HPI narrative: This patient is ambulatory into the ED presenting with nausea/vomiting in the setting of type 1 diabetes with increased ketones. She has underlying diabetic gastro paresis and has baseline problems with oral intake. Today she woke up and states she really just did not feel good. She has felt nauseated, has not been able to eat anything. Her sugars are running in the 300s despite her basal insulin. She states she could use some extra insulin. She is very fearful of having hypoglycemia. She is having no significant abdominal pain, no fevers chills, no changes in urination with concerns for any UTI symptoms, has not been sick with cough or cold symptoms. She is not having any diarrhea. She has had diabetic ketoacidosis before. She has a virtual consult with the physician tomorrow whom is a surgeon, they are evaluating her for putting in a stimulator for her gastroparesis. Her mouth feels dry, she cannot quench her thirst but if she does drink, she is throwing up. She feels lightheaded and dizzy, notes her heart rate is up. She just had a large volume liquid emesis prior to my coming in. Related Data Home Medications ?Medication ?Instructions ?Recorded ?Confirmed blood-glucose sensor (Dexcom G6 #1 ea 03/23/23 01/01/24 Sensor device) blood-glucose transmitter (Dexcom #1 ea 03/23/23 01/01/24 G6 Transmitter device) insulin lispro 100 unit/mL 60 - 80 unit subcut DAILY 03/23/23 02/11/24 subcutaneous solution (Humalog U-100 Insulin) clonidine HCl 0.1 mg tablet 0.1 mg PO BID 01/01/24 02/11/24 lamotrigine 200 mg tablet 200 mg PO HS 01/01/24 02/11/24 lamotrigine 25 mg tablet 50 mg PO HS 01/01/24 02/11/24 ondansetron 4 mg disintegrating 4 mg PO Q8H PRN 01/01/24 02/11/24 tablet spironolactone 50 mg tablet 50 mg PO QAM 01/01/24 02/11/24 clindamycin phosphate 1 % lotion 1 applic topical QAM 01/11/24 02/11/24 promethazine 12.5 mg tablet 12.5 mg PO QID 02/11/24 02/11/24 tretinoin 0.05 % topical cream 1 applic topical QPM 02/11/24 02/11/24 (Retin-A) Allergies Allergy/AdvReac Type Severity Reaction Status Date / Time Sulfa (Sulfonamide Allergy Verified 02/11/24 14:53 Antibiotics) Review of Systems Status of ROS: Reports: 6 or more systems reviewed and unremarkable except as noted in History and below [facility] Medical History Diabetes ?E11.9 - Type 2 diabetes mellitus without complications (ICD-10) Depression ?F32.A - Depression, unspecified (ICD-10) Anxiety ?F41.9 - Anxiety disorder, unspecified (ICD-10) Eating disorder ?F50.9 - Eating disorder, unspecified (ICD-10) Medical cannabis use ?Z79.899 - Other half-way (current) drug therapy (ICD-10) Alcohol use disorder ?F10.90 - Alcohol use, unspecified, uncomplicated (ICD-10) Hyperlipidemia ?E78.5 - Hyperlipidemia, unspecified (ICD-10) Bipolar 2 disorder ?F31.81 - Bipolar II disorder (ICD-10) Diabetic gastroparesis ?E11.43 - Type 2 diabetes mellitus with diabetic autonomic (poly)neuropathy (ICD-10) ?K31.84 - Gastroparesis (ICD-10) Diabetic retinopathy ?E11.319 - Type 2 diabetes mellitus with unspecified diabetic retinopathy without macular edema (ICD-10) Type 1 diabetes mellitus ?E10.9 - Type 1 diabetes mellitus without complications (ICD-10) Surgical History History of esophagogastroduodenoscopy (EGD) ?Z98.890 - Other specified postprocedural states (ICD-10) Social History Narrative: She lives in [place]. She drinks alcohol occasionally. Uses cannabis daily. Previously used E cigarettes. Does not currently smoke. What is your current living situation?: I presently have a place to live Problems where you live: no known problems Problems where you live details: N/A In the past 12 months, utilities in danger of being shut off: no In the past 12 mos, have been you worried that your food would run out before you had money to buy more?: never true In the past 12 mos, the food you bought just didn't last and you didn't have money to buy more?: never true Highest level of school completed/degree received: some college, no degree Smoking Status: Never smoker Do you use any of these nicotine containing products: None How often do you have a drink containing alcohol: 2-4 times a month Alcohol type: beer How often do you have six or more drinks on one occasion: Never AUDIT-C Alcohol total score: 2 Non-prescribed substance use: marijuana (any form) How often does anyone, including family, friends and others, physically hurt you: never How often does anyone, including family, friends and others, insult or talk down to you: never How often does anyone, including family, friends and others, threaten you with harm: never How often does anyone, including family, friends and others, scream or curse at you: never service: No Exam Const: Vital Signs, click to edit/add: Vital Signs - 24 hr 02/11/24 14:48 Temperature 97.6 F Pulse Rate [Pulse Oximeter] 124 H Respiratory Rate 16 Blood Pressure [Ri ght Upper Arm] 113/76 Pulse Oximetry 98 Oxygen Delivery Me thod Room Air This 33-year-old female is alert, interactive, ambulatory in the ED. She looks pale but sclera clear, conjugate gaze. Dry tongue but lips are not cracked or dry. Symmetrical facial function, speech is normal. Neck thin without any GI giving stanchion. Lungs are clear, good air entry, no wheezing or crackles. CV fast but regular, no murmur noted, normal S1-S2. Abdomen is soft, nontender, nondistended. Bowel sounds are present but distant and sparse. Documenting provider has reviewed patient's vital signs: yes Course Course ED Course: Will obtain urinalysis, venous blood gas in appropriate labs. We will initiate an IV, a L of IV fluids. She does state Zofran IV sometimes will help her symptoms, we will give 4 mg IV Zofran. Discussed with her monitor still showing the sugar at 370 despite her basal insulin, she likely needs a bolus. She is quite fearful of a significant amount of insulin, fearful will give her hypoglycemia, she states takes her for ever to rebound back from hypoglycemia. We agreed on 4 units of regular insulin. We can monitor her and maybe give her some smaller boluses of insulin. Given this patient's history, this is likely nutritional and decreased oral intake. Need to consider possibility of infection, will review labs. She really has no specific source other than stating she did not feel well this morning. Will get influenza and COVID on her. Abdominal exam is reassuring, does not seem to be tender. Reevaluation(s) Time of Reevaluation #1: 16:21 Reevaluation #1: Went to discuss with patient starting an insulin drip. She states she has been tracking her monitor, with IV fluids in the regular insulin, her sugar is trending down. Her monitor had a value of 304, she did an Accu-Chek while I was in there, it is 301. Thus she is trending down. She is just about finished with her 1 L of fluids, 2 L is in there and ready to be started. Will continue to monitor her, at this time I think we can do p.r.n. IV boluses of insulin and let her keep her basal rate going. I do think she needs to come into the hospital given her labs as she is in DKA. Will talk to the hospitalist. Consultations Consultation #1: Have reviewed with the hospitalist Becky Werner, reviewed that this patient has DKA. Her sugars are improving, patient does not want start an insulin drip, I think with her recent glucoses and her monitor show she has trending down with the IV fluids and simple 1st bolus of 4 units regular, she can maintain on her baseline insulin and p.r.n. doses of IV insulin can be used. Patient really actually does look quite good, looks like she has already feeling better with some IV fluids. Time: 16:30 Vital Signs Vital signs: Initial Vital Signs Temperature 97.6 F 02/11/24 14:48 Temperature Source Temporal Artery Scan 02/11/24 14:48 Pulse Rate 124 H 02/11/24 14:48 Respiratory Rate 16 02/11/24 14:48 Blood Pressure 113/76 02/11/24 14:48 Blood Pressure Mean 88 02/11/24 14:48 Blood Pressure Position Sitting 02/11/24 14:48 Pulse Oximetry 98 02/11/24 14:48 Oxygen Delivery Method Room Air 02/11/24 14:48 Vital Signs Temperature 97.6 F 02/11/24 14:48 Pulse Rate 124 H 02/11/24 14:48 Respiratory Rate 16 02/11/24 14:48 Blood Pressure 113/76 02/11/24 14:48 Pulse Oximetry 98 02/11/24 14:48 Oxygen Delivery Method Room Air 02/11/24 14:48 Temperature 97.6 F 02/11/24 14:48 Pulse Rate 124 H 02/11/24 14:48 Respiratory Rate 16 02/11/24 14:48 Blood Pressure 113/76 02/11/24 14:48 Pulse Oximetry 98 02/11/24 14:48 Oxygen Delivery Method Room Air 02/11/24 14:48 Medications Administered Medications: Discontinued Medications Generic Name Dose Route Start Last Admin Trade Name Freq PRN Reason Stop Dose Admin Sodium Chloride 1,000 mls @ 1,000 mls/hr 02/11/24 15:01 02/11/24 15:24 0.9 % Sodium Chloride 1000 Ml IV 02/11/24 16:00 1,000 mls/hr .Q1H MAURILIO Administration Insulin Human Regular 4 unit 02/11/24 15:09 02/11/24 15:35 Insulin Regular, Human 100 Unit/Ml Vial IVP 02/11/24 15:10 4 unit ONCE ONE Administration Ondansetron HCl 4 mg 02/11/24 15:09 02/11/24 15:35 Ondansetron 2 Mg/Ml Inj IVP 02/11/24 15:10 4 mg ONCE ONE Administration Medical Decision Making Lab Data Lab results reviewed: Yes I reviewed the patient's lab results Labs: Lab Results 02/11/24 02/11/24 02/11/24 Range/Units 15:10 15:15 15:40 WBC 14.28 H (4.50-11.00) K/uL RBC 5.38 H (4.00-5.20) m/uL Hgb 15.9 (12.0-16.0) gm/dL Hct 48.1 (33.0-51.0) % MCV 89 (80-100) fL MCH 30 (26-34) pg MCHC 33 (32-36) gm/dL RDW Coeff of Cherelle 12.3 (11.5-15.5) % Plt Count 400 (140-440) K/uL Neut % (Auto) 94.7 H (42.0-72.0) % Lymph % (Auto) 3.4 L (20-44) % Stanley % (Auto) 1.4 (0.0-11.0) % Eos % (Auto) 0.0 (0.0-7.0) % Baso % (Auto) 0.4 (0.0-3.0) % Neut # (Auto) 13.50 H (1.7-7.0) K/uL Lymph # (Auto) 0.50 L (0.90-2.90) K/uL Stanley # (Auto) 0.20 (0.00-0.90) K/UL Eos # (Auto) 0.00 (0.00-0.50) K/uL Baso # (Auto) 0.10 (0.00-0.30) K/uL Abs Immat Gran (auto) 0.00 (0.00-0.30) K/uL Imm/Tot Granulo (auto) 0.1 % VBG pH 7.146 L* (7.32-7.43) VBG pCO2 35 L (40-50) mmHG VBG pO2 < 30.1 (25-47) mmHG VBG HCO3 12 L (21-28) mmol/L Sodium 134 L (135-149) mmol/L Potassium 4.4 (3.6-5.1) mmol/L Chloride 95 L (96-114) mmol/L Carbon Dioxide 10 L (20-32) mmol/L Anion Gap 29 H (7-15) mEq/L BUN 15 (5-24) mg/dL Creatinine 0.7 (0.5-1.5) mg/dL Estimated Creat Clear 117.47 Estimated GFR 119 ml/min Glucose 437 H* (60-115) mg/dL Lactate 3.3 H (0.5-1.9) mmol/L Calcium 10.2 (8.4-10.6) mg/dL Total Bilirubin 0.8 (0.1-1.5) mg/dL AST 29 (12-35) U/L ALT 24 (4-35) U/L Alkaline Phosphatase 121 (40-150) U/L Troponin I < 0.01 L (0.01-0.04) ng/mL Total Protein 9.5 H (6.0-8.3) g/dL Albumin 5.8 H (3.3-5.0) g/dL Urine Color Yellow (Yellow) Urine Appearance Clear (Clear) Urine pH 5.5 (5.0-8.5) Ur Specific [place] 1.025 (1.000-1.030) Urine Protein 1+ A (Negative) Urine Glucose (UA) 2+ A (Negative) Urine Ketones 4+ A (Negative) Urine Blood Negative (Negative) Urine Nitrite Negative (Negative) Urine Bilirubin Negative (Negative) Urine Urobilinogen 0.2 (0.2-1.0) Ur Leukocyte Esterase Negative (Negative) Urine RBC 0-2 (0-2) Urine WBC 0-2 (0-5) Ur Squamous Epith Cells None (None-Few) Urine Bacteria None (None) SARS-CoV-2 (PCR) Negative SARS-CoV-2 (Negative) Influenza Type A (PCR) Negative PCR FLU A (Negative) Influenza Type B (PCR) Negative PCR FLU B (Negative) ECG Data Attestation: I personally reviewed and interpreted this ECG as follows: (Sinus tachycardia, 109 beats per minute. Some artifact. No definitive ischemia or infarct.) Prior ECG tracings: available for review Discharge Plan Discharge Clinical Impression: DKA, type 1 Qualifiers: Diabetes mellitus complication detail: without coma Qualified Code(s): E10.10 - Type 1 diabetes mellitus with ketoacidosis without coma Patient Disposition: Admitted As Observation
[2024-02-11 15:17] LABS: Appearance Urine Clear (Clear); Bilirubin Urine Negative (Negative); Blood Urine Negative (Negative); Color Urine Yellow (Yellow); Glucose Urine 2+ (Negative); Ketones Urine 4+ (Negative); Leukocyte Esterase Urine Negative (Negative); Nitrite Urine Negative (Negative); Protein Urine 1+ (Negative); Specific Gravity Urine 1.025 (1.000-1.030); Urobilinogen Urine 0.2 (0.2-1.0); pH Urine 5.5 (5.0-8.5)
[2024-02-11 15:21] LABS: HCO3 VBG 12 mmol/L (21-28); Lactate* 3.3 mmol/L (0.5-1.9); PCO2 VBG 35 mmHG (40-50); PO2 VBG < 30.1 mmHG (25-47)
[2024-02-11 15:23] LABS: pH VBG 7.146 (7.32-7.43)
[2024-02-11] MEDS: 0.9 % SODIUM CHLORIDE 1000 ml 1,000 ML IV ×3 (15:24→18:55)
[2024-02-11 15:34] LABS: Basophils Percent Auto 0.4 % (0.0-3.0); Hematocrit 48.1 % (33.0-51.0); Hemoglobin* 15.9 gm/dL (12.0-16.0); Immature Granulocytes Pct Auto 0.1 %; Lymphocytes Percent Auto 3.4 % (20-44); Mean Corpuscular HGB Conc 33 gm/dL (32-36); Mean Corpuscular Hemoglobin 30 pg (26-34); Mean Corpuscular Volume 89 fL (80-100); Monocytes Percent Auto 1.4 % (0.0-11.0); Neutrophils Percent Auto 94.7 % (42.0-72.0); Platelet Count* 400 K/uL (140-440); RDW Coefficient of Variation % 12.3 % (11.5-15.5); Red Blood Count 5.38 m/uL (4.00-5.20); White Blood Count* 14.28 K/uL (4.50-11.00)
[2024-02-11] MEDS: INSULIN REGULAR, HUMAN 100 UNIT/ML VIAL IVP (15:35)
[2024-02-11] MEDS: ONDANSETRON 2 MG/ML inj 4 MG IVP (15:35)
[2024-02-11 15:36] LABS: RBC Urine 0-2 (0-2); WBC Urine 0-2 (0-5)
[2024-02-11 15:40] LABS: Albumin* 5.8 g/dL (3.3-5.0)
[2024-02-11 15:41] LABS: Chloride* 95 mmol/L (96-114); Potassium* 4.4 mmol/L (3.6-5.1); Sodium* 134 mmol/L (135-149)
[2024-02-11 15:43] LABS: Anion Gap 29 mEq/L (7-15); Aspartate Amino Transferase* 29 U/L (12-35); Bilirubin Total* 0.8 mg/dL (0.1-1.5); Carbon Dioxide* 10 mmol/L (20-32); Creatinine* 0.7 mg/dL (0.5-1.5); Est. Creatinine Clearance* 117.47; Estimated Glomerular Filt Rate 119 ml/min
[2024-02-11 15:44] LABS: Alanine Aminotransferase* 24 U/L (4-35); Alkaline Phosphatase* 121 U/L (40-150); Blood Urea Nitrogen* 15 mg/dL (5-24); Calcium* 10.2 mg/dL (8.4-10.6); Total Protein* 9.5 g/dL (6.0-8.3)
[2024-02-11 15:55] LABS: Glucose* 437 mg/dL (60-115); Slide Review Reflex No
[2024-02-11 15:56] LABS: Troponin I* < 0.01 ng/mL (0.01-0.04)
[2024-02-11 16:26] LABS: PCR FLU A Negative PCR FLU A (Negative); PCR FLU B Negative PCR FLU B (Negative); SARS PCR* Negative SARS-CoV-2 (Negative)
[2024-02-11] MEDS: PROCHLORPERAZINE 5 MG/ML VIAL IV (18:07)
[2024-02-11] MEDS: 0.9 % SODIUM CHLORIDE 1000 ml 1,000 ML 75 ML IV (18:07)
--- NOTE | 2024-02-11 18:19 | PM.IMHP1 ---
Hospitalist- H&P: HPI History of Present Illness Date Seen: 02/11/24 Chief complaint: Type 1 diabetic w/ketones, vomiting Narrative: Lucia Villatoro is a 33 year old female past medical history significant for type 1 diabetes mellitus of late poorly controlled, gastroparesis, hidradenitis suppurative is admitted to the medical floor from the ED for DKA type 1 diabetes mellitus. Patient is seen with her significant other at bedside. She reports chronic nausea with vomiting in setting of gastroparesis with worsened vomiting this morning. In general, was not feeling well this morning, nauseous with vomiting, without abdominal pain. Has had a headache today. Has had episodes of dizziness, which has since improved following management in the ED. No recent fevers. Denies chest pain or shortness of breath. Denies change in stools or urination. She reports being frustrated with her diabetes being poorly managed in the setting of gastroparesis. She was recently seen by [facility] confirming gastroparesis presence. Has a virtual visit with a surgeon tomorrow, , to discuss a stimulator for her gastroparesis. In the ED, patient was reported to have an emesis of approximately 700-800 mL. Initial blood sugars 437. VBG confirms acidosis. She has a leukocytosis and an elevated lactate in the setting of DKA. Patient is admitted for DKA management. She has a pump in place and does not want an insulin infusion at this point. Blood sugars have dropped below 300. She admits to being fearful of her blood sugar going too low. Her basal rate is typically 0.35, lower at bedtime. Her blood sugars have been running >275 lately. She admits to using only an additional 2-4 units daily, underdosing, in managing this. Does not smoke tobacco but does smoke marijuana which helps her nausea. Alcohol use is rare. Review of Systems Narrative: REVIEW OF SYSTEMS: Complete review of systems performed and negative unless otherwise stated in HPI or below. [facility] Medical History Gastroparesis ?K31.84 - Gastroparesis (ICD-10) Diabetes ?E11.9 - Type 2 diabetes mellitus without complications (ICD-10) Depression ?F32.A - Depression, unspecified (ICD-10) Anxiety ?F41.9 - Anxiety disorder, unspecified (ICD-10) Eating disorder ?F50.9 - Eating disorder, unspecified (ICD-10) Medical cannabis use ?Z79.899 - Other extermination inspector (current) drug therapy (ICD-10) Alcohol use disorder ?F10.90 - Alcohol use, unspecified, uncomplicated (ICD-10) Hyperlipidemia ?E78.5 - Hyperlipidemia, unspecified (ICD-10) Bipolar 2 disorder ?F31.81 - Bipolar II disorder (ICD-10) Diabetic gastroparesis ?E11.43 - Type 2 diabetes mellitus with diabetic autonomic (poly)neuropathy (ICD-10) ?K31.84 - Gastroparesis (ICD-10) Diabetic retinopathy ?E11.319 - Type 2 diabetes mellitus with unspecified diabetic retinopathy without macular edema (ICD-10) Type 1 diabetes mellitus ?E10.9 - Type 1 diabetes mellitus without complications (ICD-10) Surgical History History of esophagogastroduodenoscopy (EGD) ?Z98.890 - Other specified postprocedural states (ICD-10) Social History Narrative: She lives in [place]. She drinks alcohol occasionally. Uses cannabis daily. Previously used E cigarettes. Does not currently smoke. What is your current living situation?: I presently have a place to live Problems where you live: no known problems Problems where you live details: none In the past 12 months, utilities in danger of being shut off: no In the past 12 mos, have been you worried that your food would run out before you had money to buy more?: never true In the past 12 mos, the food you bought just didn't last and you didn't have money to buy more?: never true Highest level of school completed/degree received: some college, no degree Smoking Status: Never smoker Do you use any of these nicotine containing products: None How often do you have a drink containing alcohol: 2-3 times a week Alcohol type: beer How often do you have six or more drinks on one occasion: Never AUDIT-C Alcohol total score: 3 Non-prescribed substance use: marijuana (any form) How often does anyone, including family, friends and others, physically hurt you: never How often does anyone, including family, friends and others, insult or talk down to you: never How often does anyone, including family, friends and others, threaten you with harm: never How often does anyone, including family, friends and others, scream or curse at you: never service: No Meds Home Medications and Allergies Home Medications ?Medication ?Instructions ?Recorded ?Confirmed ?Type blood-glucose sensor (Dexcom G6 #1 ea 03/23/23 01/01/24 History Sensor device) blood-glucose transmitter (Dexcom #1 ea 03/23/23 01/01/24 History G6 Transmitter device) insulin lispro 100 unit/mL 60 - 80 unit subcut DAILY 03/23/23 02/11/24 History subcutaneous solution (Humalog U-100 Insulin) clonidine HCl 0.1 mg tablet 0.1 mg PO BID 01/01/24 02/11/24 History lamotrigine 200 mg tablet 200 mg PO HS 01/01/24 02/11/24 History lamotrigine 25 mg tablet 50 mg PO HS 01/01/24 02/11/24 History ondansetron 4 mg disintegrating 4 mg PO Q8H PRN 01/01/24 02/11/24 History tablet spironolactone 50 mg tablet 50 mg PO QAM 01/01/24 02/11/24 History clindamycin phosphate 1 % lotion 1 applic topical QAM 01/11/24 02/11/24 History promethazine 12.5 mg tablet 12.5 mg PO QID 02/11/24 02/11/24 History tretinoin 0.05 % topical cream 1 applic topical QPM 02/11/24 02/11/24 History (Retin-A) Allergies Allergy/AdvReac Type Severity Reaction Status Date / Time Sulfa (Sulfonamide Allergy Verified 02/11/24 14:53 Antibiotics) Exam Narrative: Exam Narrative: PHYSICAL EXAM General: Pleasant, tearful at times with frustration, otherwise NAD HEENT: Normocephalic, atraumatic, sclera white, EOMI, oral mucosa moist Cardiovascular: Tachycardic. No pitting edema Pulmonary: CTA bilaterally without rhonchi, rales, expiratory wheezes. No dyspnea Abdominal: Soft, nondistended, NTTP Neurological: Alert, answering questions appropriately, cranial nerves intact, no focal findings Extremities: No gross joint deformity or swelling. AROMI. Neurovascularly intact Skin: Warm, dry. Const: Vital Signs, click to edit/add: Vital Signs - 24 hr 02/11/24 14:48 02/11/24 16:29 02/11/24 16:30 Temperature 97.6 F Pulse Rate 105 H 105 H Pulse Rate [Pulse Oximeter] 124 H Pulse Rate [Right Pulse Oximeter] Respiratory Rate 16 Blood Pressure [Ri ght Arm] Blood Pressure [Ri ght Upper Arm] 113/76 Pulse Oximetry 98 100 100 Oxygen Delivery Me thod Room Air 02/11/24 17:11 02/11/24 17:11 Temperature 97.5 F L Pulse Rate Pulse Rate [Pulse Oximeter] Pulse Rate [Right Pulse Oximeter] 113 H Respiratory Rate 20 20 Blood Pressure [Ri ght Arm] 130/91 H Blood Pressure [Ri ght Upper Arm] Pulse Oximetry 99 99 Oxygen Delivery Me thod Room Air Room Air Hospitalist - H&P: Result Labs Labs: Short CBC 02/11/24 Range/Units 15:15 WBC 14.28 H (4.50-11.00) K/uL Hgb 15.9 (12.0-16.0) gm/dL Hct 48.1 (33.0-51.0) % Plt Count 400 (140-440) K/uL BMP 02/11/24 15:15 Sodium 134 L Potassium 4.4 Chloride 95 L Carbon Dioxide 10 L BUN 15 Creatinine 0.7 Glucose 437 H* Calcium 10.2 Cardiac Enzymes 02/11/24 Range/Units 15:15 Troponin I < 0.01 L (0.01-0.04) ng/mL Liver Function 02/11/24 Range/Units 15:15 Total Bilirubin 0.8 (0.1-1.5) mg/dL AST 29 (12-35) U/L ALT 24 (4-35) U/L Alkaline Phosphatase 121 (40-150) U/L Albumin 5.8 H (3.3-5.0) g/dL Urine 02/11/24 Range/Units 15:10 Urine Color Yellow (Yellow) Urine Appearance Clear (Clear) Urine pH 5.5 (5.0-8.5) Ur Specific [place] 1.025 (1.000-1.030) Urine Protein 1+ A (Negative) Urine Glucose (UA) 2+ A (Negative) ECG Attestation: I personally reviewed and interpreted this ECG as follows: Interpretation: Sinus tachycardia, ventricular rate 109, QTC 449 Assessment and Plan Assessment and plan (1) DKA, type 1: Problem comment: -symptomatic with nausea, vomiting, tachycardia (improving), dizziness (resolved), headache -on admission WBC 14.28, lactate 3.3 -normalized to 1.3 , acidosis - VBG pH 7.146 - trending up, pCO2 35, HC03 12, anion gap 29 - trending down -has received normal saline bolus x3, continue maintenance normal saline, bolus as needed, transitioning to D5 1/2 NS following DKA protocol with glucose <200 -per DKA protocol - BMP, lactate, VBG q.4 hours, morning labs -glucose POC q.1 hour for now -continue insulin pump with basal rate, dosing p.r.n. q.3 hours Status: Acute (2) Nausea and vomiting: Problem comment: -acute on chronic, worse in setting of acute DKA -anti emetics as needed, recently started on Phenergan which makes her tired, q.i.d. Reglan not helpful -IV PPI -clear diet for now, advancing as tolerated when no further vomiting Status: Acute (3) Type 1 diabetes mellitus: Problem comment: -currently poorly managed, suspected in setting of gastroparesis, poor oral intake, recurrent nausea vomiting -reports average glucose >275 -A1c ordered Status: Acute (4) Gastroparesis: Problem comment: -with chronic nausea and vomiting -followed by [facility] -has a virtual visit on 02/12/2024 for discussion of stimulator Status: Acute Total Time Spent Total Time Spent: Total time spent caring for the patient today was 90 minutes. This includes time spent for the visit reviewing the chart, time spent during the visit, time spent after the visit and documentation and planning in coordination of care.
[2024-02-11 18:33] LABS: HCO3 VBG 13 mmol/L (21-28); Lactate* 1.3 mmol/L (0.5-1.9); PCO2 VBG 33 mmHG (40-50); PO2 VBG < 30.1 mmHG (25-47)
[2024-02-11 18:39] LABS: pH VBG 7.185 (7.32-7.43)
[2024-02-11 18:49] LABS: Chloride* 103 mmol/L (96-114)
[2024-02-11 18:50] LABS: Potassium* 4.8 mmol/L (3.6-5.1); Sodium* 133 mmol/L (135-149)
[2024-02-11 18:52] LABS: Creatinine* 0.5 mg/dL (0.5-1.5); Est. Creatinine Clearance* 164.45; Estimated Glomerular Filt Rate 129 ml/min
[2024-02-11 18:53] LABS: Anion Gap 20 mEq/L (7-15); Blood Urea Nitrogen* 12 mg/dL (5-24); Calcium* 8.8 mg/dL (8.4-10.6); Carbon Dioxide* 10 mmol/L (20-32); Glucose* 301 mg/dL (60-115); Magnesium* 1.8 mg/dL (1.5-2.6); Phosphorus* 4.2 mg/dL (2.5-4.5)
[2024-02-11] MEDS: PANTOPRAZOLE SODIUM 40 MG INJ IVP (18:54)
[2024-02-11] MEDS: ACETAMINOPHEN 500 MG TABLET 1000 MG PO (18:55)
[2024-02-11] MEDS: INSULIN ASPART 100 UNIT/ML SUBCUT (18:59)
--- NOTE | 2024-02-11 19:20 | PC.NURSE ---
Admission-1900: The patient is pleasant and alert and orientated, although noted to be anxious regarding BG levels and dropping too low. VSS on RA, noted to be tachycardic. The patient reports a headache and dizziness upon arrival to the floor. PRN TYLENOL WAS given. Nauseous as well, clear liquid diet. Up ad pati as tolerated. We are using the patients BG monitor/insulin pump to dose insulin based on BG level. BG checks q1 and insulin PRN q3. N/S bolus infusing, 3L currently for metabolic acidosis. The patient was educated to press her call button with any needs or concerns. Gale LOPEZ BSN
[2024-02-11] MEDS: 0.9 % SODIUM CHLORIDE 1000 ml 1,000 ML 125 ML IV (19:59)
--- NOTE | 2024-02-11 20:26 | PC.NURSE ---
Per Dr. Flores. Pt to use own insulin pump Q3H as necessary. She does not have to use our Ins Nov pump at this time.
[2024-02-11] MEDS: cloNIDine HCL 0.1 MG TABLET PO (21:05)
[2024-02-11] MEDS: lamoTRIgine 25 MG TABLET 50 MG PO (21:06)
[2024-02-11] MEDS: lamoTRIgine 100 MG TABLET 200 MG PO (21:07)
[2024-02-11] MEDS: SODIUM CHLORIDE 0.9 % (FLUSH) 10 ML SYRINGE 5 ML IVF (21:07)
[2024-02-11 22:28] LABS: HCO3 VBG 12 mmol/L (21-28); Lactate* 0.6 mmol/L (0.5-1.9); PCO2 VBG 29 mmHG (40-50)
[2024-02-11 22:29] LABS: pH VBG 7.238 (7.32-7.43)
[2024-02-11 22:45] LABS: Chloride* 104 mmol/L (96-114); Potassium* 4.3 mmol/L (3.6-5.1); Sodium* 130 mmol/L (135-149)
[2024-02-11 22:48] LABS: Anion Gap 15 mEq/L (7-15); Carbon Dioxide* 11 mmol/L (20-32); Creatinine* 0.5 mg/dL (0.5-1.5); Est. Creatinine Clearance* 164.45; Estimated Glomerular Filt Rate 129 ml/min
[2024-02-11 22:49] LABS: Blood Urea Nitrogen* 9 mg/dL (5-24); Calcium* 7.9 mg/dL (8.4-10.6); Glucose* 232 mg/dL (60-115)
[2024-02-11] MEDS: INSULIN PUMP (PT OWN) 1 EACH SUBCUT (22:51)
--- NOTE | 2024-02-11 23:06 | PC.NURSE ---
1.4U of Pt own insulin given at 2300. BG was 270 at that time
[2024-02-12] VITALS (8 sets, daily range): BP systolic 91–142; BP diastolic 51–87; PULSE 71–93; RESP 16; TEMP 36.4–36.8; O2SAT 97–99; BMI 24.0
[2024-02-12] MEDS: INSULIN PUMP (PT OWN) 1 EACH SUBCUT ×7 (01:56→20:45)
--- NOTE | 2024-02-12 01:58 | PC.NURSE ---
0200 BG was 238, Pt gave self 0.76u Ins.
[2024-02-12 02:27] LABS: HCO3 VBG 15 mmol/L (21-28); Lactate* 0.6 mmol/L (0.5-1.9); PCO2 VBG 35 mmHG (40-50); PO2 VBG 31.9 mmHG (25-47); pH VBG 7.252 (7.32-7.43)
[2024-02-12 02:43] LABS: Chloride* 106 mmol/L (96-114); Potassium* 4.4 mmol/L (3.6-5.1); Sodium* 132 mmol/L (135-149)
[2024-02-12 02:46] LABS: Anion Gap 13 mEq/L (7-15); Blood Urea Nitrogen* 8 mg/dL (5-24); Carbon Dioxide* 13 mmol/L (20-32); Creatinine* 0.5 mg/dL (0.5-1.5); Est. Creatinine Clearance* 164.45; Estimated Glomerular Filt Rate 129 ml/min; Glucose* 204 mg/dL (60-115)
[2024-02-12] MEDS: 0.9 % SODIUM CHLORIDE 1000 ml 1,000 ML 125 ML IV (04:19)
--- NOTE | 2024-02-12 05:04 | PC.NURSE ---
@ 0500 PT BG was 215. Gave self Ins of 0.3u.
[2024-02-12 07:25] LABS: Hematocrit 35.3 % (33.0-51.0); Hemoglobin* 11.6 gm/dL (12.0-16.0); Mean Corpuscular HGB Conc 33 gm/dL (32-36); Mean Corpuscular Hemoglobin 29 pg (26-34); Mean Corpuscular Volume 89 fL (80-100); Platelet Count* 275 K/uL (140-440); Red Blood Count 3.95 m/uL (4.00-5.20); White Blood Count* 9.64 K/uL (4.50-11.00)
[2024-02-12 07:27] LABS: Slide Review Reflex No
[2024-02-12 07:41] LABS: Chloride* 107 mmol/L (96-114); Potassium* 3.9 mmol/L (3.6-5.1); Sodium* 131 mmol/L (135-149)
[2024-02-12 07:43] LABS: Creatinine* 0.5 mg/dL (0.5-1.5); Est. Creatinine Clearance* 164.45; Estimated Glomerular Filt Rate 129 ml/min
[2024-02-12 07:44] LABS: Anion Gap 10 mEq/L (7-15); Blood Urea Nitrogen* 6 mg/dL (5-24); Calcium* 8.1 mg/dL (8.4-10.6); Carbon Dioxide* 14 mmol/L (20-32); Glucose* 182 mg/dL (60-115)
[2024-02-12 08:04] LABS: Hemoglobin A1C* 8.7 % (0-5.6)
[2024-02-12 08:10] LABS: Lab Add On Test New Spec Needed
[2024-02-12 08:21] LABS: HCO3 VBG 15 mmol/L (21-28); PCO2 VBG 32 mmHG (40-50); PO2 VBG 47.9 mmHG (25-47); pH VBG 7.267 (7.32-7.43)
[2024-02-12] MEDS: SODIUM CHLORIDE 0.9 % (FLUSH) 10 ML SYRINGE 5 ML IVF ×2 (08:41→20:41)
[2024-02-12] MEDS: ONDANSETRON 2 MG/ML inj 4 MG IVP (08:42)
[2024-02-12] MEDS: PANTOPRAZOLE SODIUM 40 MG INJ IVP (08:42)
[2024-02-12] MEDS: ACETAMINOPHEN 500 MG TABLET 1000 MG PO (08:43)
--- NOTE | 2024-02-12 10:47 | P.IMPN_ITS ---
Progress Note: A&P Assessment and plan (1) DKA, type 1: Problem details: -BG 437 and AG 29 on arrival, acidotic -gap closed hospital day 1 with improvement in symptoms and + po intake, normal K and creatinine -deferred insulin gtt given pump in place, has DexCom for monitoring Status: Acute (2) Nausea and vomiting: Problem details: -acute on chronic with history of gastroparesis worse in setting of acute DKA -anti emetics as needed, recently started on Phenergan which makes her tired, q.i.d. Reglan not helpful -IV PPI -advancing diet 02/11 Status: Acute (3) Type 1 diabetes mellitus: Problem details: -currently poorly managed, suspected in setting of gastroparesis, poor oral intake, recurrent nausea vomiting -reports average glucose >275 -A1c ordered Status: Acute (4) Gastroparesis: Problem details: -with chronic nausea and vomiting -followed by [facility] -has a virtual visit on 02/12/2024 for discussion of stimulator Status: Acute Plan - continue advancing diet, likely home early tomorrow - patient in agreement with plan Subjective Date Seen: 02/12/24 Interval history: Lucia is a type 1 diabetic who was admitted to the hospital last night for DKA. BG on presentation was 437 with AG of 29 and pH of 7.146 Insulin gtt deferred as patient was worried about hypoglycemia (chronic gastroparesis), used pump overnight to bolus based on hourly results. Gap has now closed, potassium stable. Tolerating po this morning, feeling better but not yet back to baseline. Exam Narrative: Exam Narrative: GEN: Alert and sitting up comfortably in bed, nontoxic and answering questions appropriately HEENT: Normal external ears, EOMIs bilaterally, no scleral icterus CV: RRR, No concerning murmurs R: LCTA bilaterally without concerning wheezing, air movement adequate Ext: wwp, no concerning edema Skin: No concerning skin lesions or rashes on exposed skin Neuro: Nonfocal Psych: Appropriate Const: Vital Signs, click to edit/add: Vital Signs - 24 hr 02/11/24 14:48 02/11/24 16:29 02/11/24 16:30 Temperature 97.6 F Pulse Rate 105 H 105 H Pulse Rate [Pulse Oximeter] 124 H Pulse Rate [Right Pulse Oximeter] Respiratory Rate 16 Blood Pressure [Ri ght Arm] Blood Pressure [Ri ght Upper Arm] 113/76 Pulse Oximetry 98 100 100 Oxygen Delivery Me thod Room Air 02/11/24 17:11 02/11/24 17:11 02/11/24 17:25 Temperature 97.5 F L Pulse Rate 103 H Pulse Rate [Pulse Oximeter] Pulse Rate [Right Pulse Oximeter] 113 H Respiratory Rate 20 20 Blood Pressure [Ri ght Arm] 130/91 H Blood Pressure [Ri ght Upper Arm] Pulse Oximetry 99 99 Oxygen Delivery Dc thod Room Air Room Air 02/11/24 19:19 02/11/24 19:26 02/11/24 21:19 Temperature 98.7 F 98.7 F Pulse Rate 97 Pulse Rate [Pulse Oximeter] Pulse Rate [Right Pulse Oximeter] 105 H Respiratory Rate 16 Blood Pressure [Ri ght Arm] 135/74 Blood Pressure [Ri ght Upper Arm] Pulse Oximetry 100 [facility] 02/11/24 22:54 02/11/24 22:57 02/12/24 02:59 Temperature 98.3 F 97.6 F Pulse Rate Pulse Rate [Pulse Oximeter] Pulse Rate [Right Pulse Oximeter] 94 88 Respiratory Rate 16 16 16 Blood Pressure [Ri ght Arm] 90/53 L 91/51 L Blood Pressure [Ri ght Upper Arm] Pulse Oximetry 96 98 Oxygen Delivery Dc thod Room Air Room Air 02/12/24 07:00 02/12/24 07:00 Temperature 98.2 F Pulse Rate 79 Pulse Rate [Pulse Oximeter] Pulse Rate [Right Pulse Oximeter] 84 Respiratory Rate 16 Blood Pressure [Ri ght Arm] 106/66 Blood Pressure [Ri ght Upper Arm] Pulse Oximetry 97 Oxygen Delivery Dc thod Room Air Labs Labs: Laboratory Results - last 24 hr 02/11/24 02/11/24 02/11/24 15:10 15:15 15:40 WBC 14.28 H RBC 5.38 H Hgb 15.9 Hct 48.1 MCV 89 MCH 30 MCHC 33 RDW Coeff of Cherelle 12.3 Plt Count 400 Neut % (Auto) 94.7 H Lymph % (Auto) 3.4 L [place] % (Auto) 1.4 Eos % (Auto) 0.0 Baso % (Auto) 0.4 Neut # (Auto) 13.50 H Lymph # (Auto) 0.50 L [place] # (Auto) 0.20 Eos # (Auto) 0.00 Baso # (Auto) 0.10 Abs Immat Gran (auto) 0.00 Imm/Tot Granulo (auto) 0.1 VBG pH 7.146 L* VBG pCO2 35 L VBG pO2 < 30.1 VBG HCO3 12 L Sodium 134 L Potassium 4.4 Chloride 95 L Carbon Dioxide 10 L Anion Gap 29 H BUN 15 Creatinine 0.7 Estimated Creat Clear 117.47 Estimated GFR 119 Glucose 437 H* Hemoglobin A1c Lactate 3.3 H Calcium 10.2 Phosphorus Magnesium Total Bilirubin 0.8 AST 29 ALT 24 Alkaline Phosphatase 121 Troponin I < 0.01 L Total Protein 9.5 H Albumin 5.8 H Urine Color Yellow Urine Appearance Clear Urine pH 5.5 Ur Specific [place] 1.025 Urine Protein 1+ A Urine Glucose (UA) 2+ A Urine Ketones 4+ A Urine Blood Negative Urine Nitrite Negative Urine Bilirubin Negative Urine Urobilinogen 0.2 Ur Leukocyte Esterase Negative Urine RBC 0-2 Urine WBC 0-2 Ur Squamous Epith Cells None Urine Bacteria None SARS-CoV-2 (PCR) Negative SARS-CoV-2 Influenza Type A (PCR) Negative PCR FLU A Influenza Type B (PCR) Negative PCR FLU B Lab Acknowledgement 02/11/24 02/11/24 02/12/24 18:30 22:24 02:25 WBC RBC Hgb Hct MCV MCH MCHC RDW Coeff of Cherelle Plt Count Neut % (Auto) Lymph % (Auto) [place] % (Auto) Eos % (Auto) Baso % (Auto) Neut # (Auto) Lymph # (Auto) [place] # (Auto) Eos # (Auto) Baso # (Auto) Abs Immat Gran (auto) Imm/Tot Granulo (auto) VBG pH 7.185 L* 7.238 L* 7.252 L VBG pCO2 33 L 29 L 35 L VBG pO2 < 30.1 49.0 H 31.9 VBG HCO3 13 L 12 L 15 L Sodium 133 L 130 L 132 L Potassium 4.8 4.3 4.4 Chloride 103 104 106 Carbon Dioxide 10 L 11 L 13 L Anion Gap 20 H 15 13 BUN 12 9 8 Creatinine 0.5 0.5 0.5 Estimated Creat Clear 164.45 164.45 164.45 Estimated GFR 129 129 129 Glucose 301 H 232 H 204 H Hemoglobin A1c Lactate 1.3 0.6 0.6 Calcium 8.8 7.9 L 8.0 L Phosphorus 4.2 Magnesium 1.8 Total Bilirubin AST ALT Alkaline Phosphatase Troponin I Total Protein Albumin Urine Color Urine Appearance Urine pH Ur Specific [place] Urine Protein Urine Glucose (UA) Urine Ketones Urine Blood Urine Nitrite Urine Bilirubin Urine Urobilinogen Ur Leukocyte Esterase Urine RBC Urine WBC Ur Squamous Epith Cells Urine Bacteria SARS-CoV-2 (PCR) Influenza Type A (PCR) Influenza Type B (PCR) Lab Acknowledgement 02/12/24 02/12/24 02/12/24 06:41 08:07 08:17 WBC 9.64 RBC 3.95 L Hgb 11.6 L Hct 35.3 MCV 89 MCH 29 MCHC 33 RDW Coeff of Cherelle Plt Count 275 Neut % (Auto) Lymph % (Auto) [place] % (Auto) Eos % (Auto) Baso % (Auto) Neut # (Auto) Lymph # (Auto) [place] # (Auto) Eos # (Auto) Baso # (Auto) Abs Immat Gran (auto) Imm/Tot Granulo (auto) VBG pH 7.267 L VBG pCO2 32 L VBG pO2 47.9 H VBG HCO3 15 L Sodium 131 L Potassium 3.9 Chloride 107 Carbon Dioxide 14 L Anion Gap 10 BUN 6 Creatinine 0.5 Estimated Creat Clear 164.45 Estimated GFR 129 Glucose 182 H Hemoglobin A1c 8.7 H Lactate Calcium 8.1 L Phosphorus Magnesium Total Bilirubin AST ALT Alkaline Phosphatase Troponin I Total Protein Albumin Urine Color Urine Appearance Urine pH Ur Specific [place] Urine Protein Urine Glucose (UA) Urine Ketones Urine Blood Urine Nitrite Urine Bilirubin Urine Urobilinogen Ur Leukocyte Esterase Urine RBC Urine WBC Ur Squamous Epith Cells Urine Bacteria SARS-CoV-2 (PCR) Influenza Type A (PCR) Influenza Type B (PCR) Lab Acknowledgement New Spec Needed
[2024-02-12 12:17] LABS: HCO3 VBG 15 mmol/L (21-28); PCO2 VBG 37 mmHG (40-50); PO2 VBG < 30.1 mmHG (25-47)
[2024-02-12 12:19] LABS: pH VBG 7.216 (7.32-7.43)
[2024-02-12 12:35] LABS: Chloride* 103 mmol/L (96-114); Potassium* 4.3 mmol/L (3.6-5.1); Sodium* 130 mmol/L (135-149)
[2024-02-12 12:37] LABS: Creatinine* 0.4 mg/dL (0.5-1.5); Est. Creatinine Clearance* 205.57; Estimated Glomerular Filt Rate 136 ml/min
[2024-02-12 12:38] LABS: Anion Gap 13 mEq/L (7-15); Blood Urea Nitrogen* 5 mg/dL (5-24); Calcium* 8.7 mg/dL (8.4-10.6); Carbon Dioxide* 14 mmol/L (20-32); Glucose* 242 mg/dL (60-115)
--- NOTE | 2024-02-12 15:41 | PC.NURSE ---
patient alert and oriented, pleasant and cooperative, up ind in room and walking in hallways, this morning woke up with a headache and feeling quite nauseated, PRN Tylenol and Zofran given with relief, patient able to tolerate eating 100% of both breakfast and lunch, declining pain, patient checking bg often and using insulin pump to dose insulin being recorded on the patient bedside record for insulin pumps and patient is able to do this independently.
[2024-02-12] MEDS: lamoTRIgine 100 MG TABLET 250 MG PO (20:40)
[2024-02-12] MEDS: cloNIDine HCL 0.1 MG TABLET 0.2 MG PO (20:40)
[2024-02-12] MEDS: SPIRONOLACTONE 25 MG TABLET 50 MG PO (20:41)
[2024-02-13] MEDS: INSULIN PUMP (PT OWN) 1 EACH SUBCUT ×4 (02:00→08:27)
[2024-02-13 03:00] VITALS: BP 124/80; PULSE 74; RESP 16; TEMP 36.3; O2SAT 98
[2024-02-13 06:17] LABS: HCO3 VBG 22 mmol/L (21-28); PCO2 VBG 40 mmHG (40-50); PO2 VBG 33.8 mmHG (25-47); pH VBG 7.356 (7.32-7.43)
[2024-02-13 06:20] LABS: Basophils Absolute Auto 0.04 K/uL (0.00-0.30); Basophils Percent Auto 0.7 % (0.0-3.0); Eosinophils Absolute Auto 0.22 K/uL (0.00-0.50); Eosinophils Percent Auto 3.6 % (0.0-7.0); Hematocrit 35.2 % (33.0-51.0); Immature Granulocytes Abs Auto 0.01 K/uL (0.00-0.30); Immature Granulocytes Pct Auto 0.2 %; Lymphocytes Absolute Auto 2.34 K/uL (0.90-2.90); Lymphocytes Percent Auto 38.7 % (20-44); Mean Corpuscular HGB Conc 34 gm/dL (32-36); Mean Corpuscular Hemoglobin 30 pg (26-34); Mean Corpuscular Volume 88 fL (80-100); Monocytes Percent Auto 7.6 % (0.0-11.0); Neutrophils Absolute Auto 2.97 K/uL (1.7-7.0); Neutrophils Percent Auto 49.2 % (42.0-72.0); Platelet Count* 259 K/uL (140-440); RDW Coefficient of Variation % 12.5 % (11.5-15.5); Red Blood Count 4.02 m/uL (4.00-5.20); White Blood Count* 6.04 K/uL (4.50-11.00)
[2024-02-13 06:23] LABS: Slide Review Reflex No
[2024-02-13 06:33] LABS: Chloride* 106 mmol/L (96-114); Potassium* 3.8 mmol/L (3.6-5.1); Sodium* 135 mmol/L (135-149)
[2024-02-13 06:36] LABS: Anion Gap 8 mEq/L (7-15); Blood Urea Nitrogen* 7 mg/dL (5-24); Calcium* 8.7 mg/dL (8.4-10.6); Carbon Dioxide* 21 mmol/L (20-32); Creatinine* 0.4 mg/dL (0.5-1.5); Est. Creatinine Clearance* 205.57; Estimated Glomerular Filt Rate 136 ml/min; Glucose* 166 mg/dL (60-115)
[2024-02-13 06:37] LABS: Magnesium* 1.8 mg/dL (1.5-2.6)
[2024-02-13 07:00] VITALS: BP 124/80; PULSE 79; RESP 16; TEMP 36.4; O2SAT 98
[2024-02-13] MEDS: PANTOPRAZOLE SODIUM 40 MG INJ IVP (08:24)
[2024-02-13] MEDS: SODIUM CHLORIDE 0.9 % (FLUSH) 10 ML SYRINGE 5 ML IVF (08:24)
--- NOTE | 2024-02-13 09:22 | PM.DS1 ---
DS: Providers Provider Date Seen: 02/13/24 Date of admission: 02/11/24 18:21 Primary care physician: Delia Yu MD Admitting Clinician: Michelle Wagner MD Attending Physician on discharge: Annette Viera MD Date of Discharge: 02/13/24 DS: Diagnosis Discharge Diagnosis (1) DKA, type 1: Status: Acute Problem details: - BG 437 and AG 29 on arrival, acidotic - deferred insulin gtt given pump in place, has DexCom for monitoring - gap closed hospital day 1 with improvement in symptoms and some po intake, normal K and creatinine, pH still <7.3 (2) Nausea and vomiting: Status: Acute Problem details: - acute on chronic with history of gastroparesis worse in setting of acute DKA - resolved during stay, tolerating po intake (3) Gastroparesis: Status: Acute Problem details: - with chronic nausea and vomiting - followed by [facility], plans to have gastric stimulator placed for this (4) Type 1 diabetes mellitus: Status: Acute Problem details: - A1C during stay 8.7 (higher than baseline) - has appt with Manager [facility] in 1 week after d/c DS: Summary Hospital Course Hospital Course: Patient was admitted to the hospital on 02/10 for DKA in the setting of acute on chronic nausea and vomiting with known history of gastroparesis. On admission, Patient deferred insulin gtt as she has pump in place and bolused insulin pending hourly BGs. Hospital day 1: Anion gap closed, GI symptoms improved, pH still <7.3. Kept for 1 more day to ensure stability and pH normalized, p.o. intake improved. Seen by GI for gastroparesis, and has follow-up with clinical assessment manager next week. Lucia was medically appropriate for discharge home on 02/13/2024. No changes made to home medications. Status at Discharge Functional status at discharge: independent ambulation Overall status at discharge: patient is back to baseline Time Spent with Patient Time attestation: Total time spent providing and/or coordinating discharge services: Time spent: Less than 30 minutes Exam Narrative: Exam Narrative: GEN: Alert and oriented, nontoxic, having breakfast and answering questions appropriately HEENT: EOMIs bilaterally, no scleral icterus CV: RRR, No concerning murmurs R: LCTA bilaterally without concerning wheezing, air movement adequate Ext: wwp, no concerning edema Skin: No concerning skin lesions or rashes on exposed skin Neuro: Nonfocal Psych: Appropriate Const: Vital Signs, click to edit/add: Vital Signs - 24 hr 02/12/24 11:00 02/12/24 15:00 02/12/24 15:00 Temperature 98.2 F 97.6 F Pulse Rate 83 Pulse Rate [Right Pulse Oximeter] 93 86 Respiratory Rate 16 16 Blood Pressure [Ri ght Arm] 122/86 139/87 Pulse Oximetry 99 99 Oxygen Delivery Me thod Room Air Room Air 02/12/24 20:30 02/12/24 23:00 02/12/24 23:30 Temperature 98.2 F 98 F Pulse Rate Pulse Rate [Right Pulse Oximeter] 84 72 Respiratory Rate 16 16 16 Blood Pressure [Ri ght Arm] 142/81 H 125/78 Pulse Oximetry 98 98 Oxygen Delivery Me thod Room Air Room Air 02/12/24 23:46 02/13/24 03:00 Temperature 97.4 F L Pulse Rate 71 Pulse Rate [Right Pulse Oximeter] 74 Respiratory Rate 16 Blood Pressure [Ri ght Arm] 124/80 Pulse Oximetry 98 Oxygen Delivery Me thod Room Air DS: Data Data Completed and Pending Labs on day of discharge: Labs from last 24 hours 02/13/24 02/12/24 05:56 12:05 WBC 6.04 RBC 4.02 Hgb 12.0 Hct 35.2 MCV 88 MCH 30 MCHC 34 RDW Coeff of Cherelle 12.5 Plt Count 259 Neut % (Auto) 49.2 Lymph % (Auto) 38.7 [place] % (Auto) 7.6 Eos % (Auto) 3.6 Baso % (Auto) 0.7 Neut # (Auto) 2.97 Lymph # (Auto) 2.34 [place] # (Auto) 0.50 Eos # (Auto) 0.22 Baso # (Auto) 0.04 Abs Immat Gran (auto) 0.01 Imm/Tot Granulo (auto) 0.2 VBG pH 7.356 7.216 L* VBG pCO2 40 37 L VBG pO2 33.8 < 30.1 VBG HCO3 22 15 L Sodium 135 130 L Potassium 3.8 4.3 Chloride 106 103 Carbon Dioxide 21 14 L Anion Gap 8 13 BUN 7 5 Creatinine 0.4 L 0.4 L Estimated Creat Clear 205.57 205.57 Estimated GFR 136 136 Glucose 166 H 242 H Calcium 8.7 8.7 Magnesium 1.8 Discharge Plan Discharge Disposition: Home, Self-Care Date of Admission: 02/11/24 18:21 Attending Provider on Discharge: Annette Viera Primary Care Provider: Delia Yu I Discharge Medications: Continued insulin lispro [Humalog U-100 Insulin] 100 unit/mL solution 60 - 80 unit subcut DAILY (DME) Dexcom G6 Sensor Device See Rx Instructions .ROUTE [id number] Qty: 1 Rx Instructions: As directed (DME) Dexcom G6 Transmitter Device See Rx Instructions .ROUTE [id number] Qty: 1 Rx Instructions: As directed promethazine 12.5 mg tablet 12.5 mg PO QID tretinoin [Retin-A] 0.05 % cream 1 applic topical QPM clonidine HCl 0.1 mg tablet 0.2 mg PO HS lamotrigine 200 mg tablet 200 mg PO HS Rx Instructions: plus 50 mg dose lamotrigine 25 mg tablet 50 mg PO HS ondansetron 4 mg tablet,disintegrating 4 mg PO Q8H PRN spironolactone 50 mg tablet 50 mg PO HS clindamycin phosphate 1 % lotion 1 applic topical QAM Discharge Orders: Discharge Order (Routine); Ordered 02/13/24 Ordered By: Annette Viera Activity Level: Activity as Tolerated Diet Detail: per previous Follow Up Appointments: Delia Yu MD [Primary Care Provider] - (Keep endocrinology appt as scheduled, see PCP as needed) [facility] Inst[facility]
--- NOTE | 2024-02-13 11:39 | PC.NURSE ---
Discharge Note: Pt friendly and cooperative, able to verbalize her needs. Using insulin pump independently and appropriately. BG= 180 prior to breakfast. VS WNL and LS COA. She denies any pain or discomfort. Tele= NSR. She was discharged to home independently with her at 1138. Pt verbalized understanding of discharge instructions and follow up appointments.
== END 2024-02-13 11:38 | disposition home or self-care (01) | DRG 638 ==
LOC: ED 16:34 → MEDSURG 16:50
PROVIDERS: Family Medicine; Admitting Provider Physician Assistant; Emergency Provider Family Medicine; PCP Family Medicine; Visit Provider Family Medicine
DX: E10.10 Type 1 diabetes mellitus with ketoacidosis without coma (principal); F31.81 Bipolar II disorder; E10.319 Type 1 diabetes mellitus with unspecified diabetic retinopathy without macular edema; E10.43 Type 1 diabetes mellitus with diabetic autonomic (poly)neuropathy; R11.2 Nausea with vomiting, unspecified; K31.84 Gastroparesis; E10.65 Type 1 diabetes mellitus with hyperglycemia; F12.90 Cannabis use, unspecified, uncomplicated; Z79.4 Long term (current) use of insulin; Z79.899 Other long term (current) drug therapy; F41.9 Anxiety disorder, unspecified; F50.9 Eating disorder, unspecified; E78.5 Hyperlipidemia, unspecified
CPT/HCPCS: 36415; 80048; 80053; 81001; 82803; 82962; 83036; 83605; 83735; 84100; 84484; 85025; 85027; 87631; 93005; 94761; 99284; 99285; A9270; J0780; J1815; J2405; J2470; J7030

== ENCOUNTER 2024-02-24 16:06 | Inpatient (IN) | payer MEDICARE, MEDICAID, SELFPAY ==
[2024-02-24] VITALS (11 sets, daily range): BP systolic 113–140; BP diastolic 68–101; PULSE 95–113; RESP 18–20; TEMP 36.1–37; O2SAT 98–100; BMI 22.8
[2024-02-24 17:02] LABS: HCO3 VBG 17 mmol/L (21-28); Lactate* 3.6 mmol/L (0.5-1.9); PCO2 VBG 40 mmHG (40-50); PO2 VBG 38.5 mmHG (25-47)
[2024-02-24 17:06] LABS: pH VBG 7.219 (7.32-7.43)
[2024-02-24] MEDS: ONDANSETRON 2 MG/ML inj 4 MG IVP ×2 (17:10→20:16)
[2024-02-24] MEDS: 0.9 % SODIUM CHLORIDE 1000 ml 1,000 ML IV ×2 (17:10→18:15)
[2024-02-24] MEDS: INSULIN REGULAR, HUMAN 100 UNIT/ML VIAL 10 UNIT IVP (17:12)
[2024-02-24 17:24] LABS: Basophils Percent Auto 0.6 % (0.0-3.0); Eosinophils Percent Auto 0.2 % (0.0-7.0); Hematocrit 44.4 % (33.0-51.0); Hemoglobin* 14.8 gm/dL (12.0-16.0); Immature Granulocytes Pct Auto 0.3 %; Mean Corpuscular HGB Conc 33 gm/dL (32-36); Mean Corpuscular Hemoglobin 30 pg (26-34); Mean Corpuscular Volume 90 fL (80-100); Monocytes Percent Auto 4.4 % (0.0-11.0); Neutrophils Percent Auto 87.5 % (42.0-72.0); Platelet Count* 348 K/uL (140-440); RDW Coefficient of Variation % 12.6 % (11.5-15.5); Red Blood Count 4.94 m/uL (4.00-5.20); White Blood Count* 11.13 K/uL (4.50-11.00)
[2024-02-24 17:26] LABS: Slide Review Reflex No
[2024-02-24 17:26] LABS: Albumin* 5.4 g/dL (3.3-5.0); Chloride* 97 mmol/L (96-114); Sodium* 134 mmol/L (135-149)
[2024-02-24 17:27] LABS: Potassium* 4.8 mmol/L (3.6-5.1)
[2024-02-24 17:28] LABS: Creatinine* 0.6 mg/dL (0.5-1.5); Est. Creatinine Clearance* 137.04; Estimated Glomerular Filt Rate 123 ml/min
[2024-02-24 17:29] LABS: Alanine Aminotransferase* 22 U/L (4-35); Alkaline Phosphatase* 141 U/L (40-150); Anion Gap 25 mEq/L (7-15); Aspartate Amino Transferase* 26 U/L (12-35); Bilirubin Direct* 0.6 mg/dL (0.0-0.5); Bilirubin Total* 0.9 mg/dL (0.1-1.5); Blood Urea Nitrogen* 17 mg/dL (5-24); Carbon Dioxide* 12 mmol/L (20-32); Total Protein* 8.5 g/dL (6.0-8.3)
[2024-02-24 17:30] LABS: Magnesium* 2.1 mg/dL (1.5-2.6)
[2024-02-24 17:32] LABS: C Reactive Protein* 0.6 mg/dL (0.5-1.0)
[2024-02-24 17:33] LABS: Glucose* 490 mg/dL (60-115)
[2024-02-24 17:55] LABS: Glucose, Point-of-Care* 362 mg/dl (60-115)
[2024-02-24] MEDS: INSULIN INF 100 UNIT/100 ML 100 UNIT/100 ML BAG 6.5 UNIT IVPB (17:56)
--- NOTE | 2024-02-24 18:17 | ED.GENADULT ---
HPI - General Adult General Chief complaint: Diabetic Related Problem Stated complaint: Diabetic, ketones, vomiting Time Seen by Provider: 02/24/24 16:21 Source: patient Mode of arrival: ambulatory Limitations: no limitations History of Present Illness HPI narrative: 33-year-old female presenting today not feeling well. Patient has history of type 1 diabetes and states that she started vomiting this morning. She states that she has been having a very hard time managing her blood glucose because she has gastroparesis and she just does not know when her food is going to be digested. Her sugars have been running high, in the 300s yesterday and into the 400s today. She denies fevers, chills. She denies chest or abdominal pain. No diarrhea. No difficulty urinating. No skin rashes. She has not been coughing. Patient was admitted from the to 12 of February for similar symptoms. She does state that she recently changed her pump site, states that her blood glucose was elevated before changing her pump. Unclear how she has been dosing her insulin. Related Data Home Medications ?Medication ?Instructions ?Recorded ?Confirmed blood-glucose sensor (Dexcom G6 #1 ea 03/23/23 02/12/24 Sensor device) blood-glucose transmitter (Dexcom #1 ea 03/23/23 02/12/24 G6 Transmitter device) insulin lispro 100 unit/mL 60 - 80 unit subcut DAILY 03/23/23 02/11/24 subcutaneous solution (Humalog U-100 Insulin) clonidine HCl 0.1 mg tablet 0.2 mg PO HS 01/01/24 02/12/24 lamotrigine 200 mg tablet 200 mg PO HS 01/01/24 02/11/24 lamotrigine 25 mg tablet 50 mg PO HS 01/01/24 02/11/24 ondansetron 4 mg disintegrating 4 mg PO Q8H PRN 01/01/24 02/11/24 tablet spironolactone 50 mg tablet 50 mg PO HS 01/01/24 02/12/24 clindamycin phosphate 1 % lotion 1 applic topical QAM 01/11/24 02/11/24 promethazine 12.5 mg tablet 12.5 mg PO QID 02/11/24 02/11/24 tretinoin 0.05 % topical cream 1 applic topical QPM 02/11/24 02/11/24 (Retin-A) Allergies Allergy/AdvReac Type Severity Reaction Status Date / Time Sulfa (Sulfonamide Allergy Verified 02/11/24 14:53 Antibiotics) Review of Systems Status of ROS: Reports: 10 or more systems reviewed and unremarkable except as noted in History and below [facility] Medical History Hidradenitis suppurativa ?L73.2 - Hidradenitis suppurativa (ICD-10) Gastroparesis ?K31.84 - Gastroparesis (ICD-10) Diabetes ?E11.9 - Type 2 diabetes mellitus without complications (ICD-10) Depression ?F32.A - Depression, unspecified (ICD-10) Anxiety ?F41.9 - Anxiety disorder, unspecified (ICD-10) Eating disorder ?F50.9 - Eating disorder, unspecified (ICD-10) Medical cannabis use ?Z79.899 - Other ferry terminal agent (current) drug therapy (ICD-10) Alcohol use disorder ?F10.90 - Alcohol use, unspecified, uncomplicated (ICD-10) Hyperlipidemia ?E78.5 - Hyperlipidemia, unspecified (ICD-10) Bipolar 2 disorder ?F31.81 - Bipolar II disorder (ICD-10) Diabetic gastroparesis ?E11.43 - Type 2 diabetes mellitus with diabetic autonomic (poly)neuropathy (ICD-10) ?K31.84 - Gastroparesis (ICD-10) Diabetic retinopathy ?E11.319 - Type 2 diabetes mellitus with unspecified diabetic retinopathy without macular edema (ICD-10) Type 1 diabetes mellitus ?E10.9 - Type 1 diabetes mellitus without complications (ICD-10) Surgical History History of esophagogastroduodenoscopy (EGD) ?Z98.890 - Other specified postprocedural states (ICD-10) Social History Narrative: She lives in [place]. She drinks alcohol occasionally. Uses cannabis daily. Previously used E cigarettes. Does not currently smoke. What is your current living situation?: I presently have a place to live Problems where you live: no known problems Problems where you live details: none In the past 12 months, utilities in danger of being shut off: no In the past 12 mos, have been you worried that your food would run out before you had money to buy more?: never true In the past 12 mos, the food you bought just didn't last and you didn't have money to buy more?: never true Highest level of school completed/degree received: some college, no degree Smoking Status: Never smoker Do you use any of these nicotine containing products: None How often do you have a drink containing alcohol: 2-3 times a week Alcohol type: beer How often do you have six or more drinks on one occasion: Never AUDIT-C Alcohol total score: 3 Non-prescribed substance use: marijuana (any form) How often does anyone, including family, friends and others, physically hurt you: never How often does anyone, including family, friends and others, insult or talk down to you: never How often does anyone, including family, friends and others, threaten you with harm: never How often does anyone, including family, friends and others, scream or curse at you: never service: No Exam Narrative: Exam Narrative: Well-nourished well-developed patient in no acute distress, slightly anxious. Alert and oriented. Answers questions appropriately. Mood and affect are appropriate. Thoughts are goal oriented and rational. No tangential or magical thinking noted. Patient speaks in full sentences without needing to catch her breath. HEENT: Normocephalic atraumatic. Pupils are equally round reactive to light. Extraocular muscles are intact. Conjunctivae are moist without any icterus noted. Moist mucous membranes. Posterior pharynx is normal. Neck is soft without any lymphadenopathy or thyromegaly. No masses are appreciated. Patient has multiple piercings. Cardiovascular: Tachycardic, regular rhythm. Lungs: Clear to auscultation bilaterally no wheezes rhonchi or rales are appreciated. Patient takes deep breaths without any discomfort. Abdomen: Soft and nontender nondistended with normal bowel sounds. Extremities: Bilateral lower extremities are without edema. Normal DP and PT pulses. Skin: Well perfused without any obvious rashes. Const: Vital Signs, click to edit/add: Vital Signs - 24 hr 02/24/24 16:10 Temperature 97.0 F L Pulse Rate [Pulse Oximeter] 113 H Respiratory Rate 18 Blood Pressure [Ri ght Upper Arm] 114/78 Pulse Oximetry 100 Oxygen Delivery Me thod Room Air Course Course ED Course: Point of care glucose 465. IV established and patient is given regular insulin bolus and IV fluids are started. CBC shows a mildly elevated white cell count of 11.1. VBG shows a pH of 7.2, HC03 of 17. Sodium is 134, potassium 4.8. Lactate is elevated at 3.6. Total protein and albumin are high. Sugar goes down to 362 after 10 units of insulin. Patient started on insulin drip in a 2 L of fluids are started. Zofran is also given for nausea and vomiting. Discussed patient with Dr. Enrique who will accept the patient for admission. Vital Signs Vital signs: Initial Vital Signs Temperature 97.0 F L 02/24/24 16:10 Temperature Source Temporal Artery Scan 02/24/24 16:10 Pulse Rate 113 H 02/24/24 16:10 Pulse Rhythm Regular 02/24/24 16:10 Respiratory Rate 18 02/24/24 16:10 Blood Pressure 114/78 02/24/24 16:10 Blood Pressure Mean 90 02/24/24 16:10 Blood Pressure Position Sitting 02/24/24 16:10 Pulse Oximetry 100 02/24/24 16:10 Oxygen Delivery Method Room Air 02/24/24 16:10 Vital Signs Temperature 97.0 F L 02/24/24 16:10 Pulse Rate 113 H 02/24/24 16:10 Respiratory Rate 18 02/24/24 16:10 Blood Pressure 114/78 02/24/24 16:10 Pulse Oximetry 100 02/24/24 16:10 Oxygen Delivery Method Room Air 02/24/24 16:10 Temperature 97.0 F L 02/24/24 16:10 Pulse Rate 113 H 02/24/24 16:10 Respiratory Rate 18 02/24/24 16:10 Blood Pressure 114/78 02/24/24 16:10 Pulse Oximetry 100 02/24/24 16:10 Oxygen Delivery Method Room Air 02/24/24 16:10 Medications Administered Medications: Generic Name Dose Route Start Last Admin Trade Name Freq PRN Reason Stop Dose Admin Insulin Human (Reg)/Sodium Chloride 100 unit in 100 mls @ 5 mls/hr 02/24/24 17:15 02/24/24 17:56 Insulin Inf 100 Unit/100 Ml IVPB 6.5 unit/hr .Q20H MAURILIO 6.5 mls/hr Administration Protocol 5 UNIT/HR Discontinued Medications Generic Name Dose Route Start Last Admin Trade Name Candelario PRN Reason Stop Dose Admin Sodium Chloride 1,000 mls @ 1,000 mls/hr 02/24/24 16:45 02/24/24 17:10 0.9 % Sodium Chloride 1000 Ml IV 02/24/24 17:44 1,000 mls/hr .Q1H MAURILIO Administration Insulin Human Regular 10 unit 02/24/24 16:32 02/24/24 17:12 Insulin Regular, Human 100 Unit/Ml Vial IVP 02/24/24 16:33 10 unit ONCE ONE Administration Ondansetron HCl 4 mg 02/24/24 17:03 02/24/24 17:10 Ondansetron 2 Mg/Ml Inj IVP 02/24/24 17:04 4 mg ONCE ONE Administration Medical Decision Making MDM Narrative Medical decision making narrative: 33-year-old female presenting with DKA. Patient will be admitted for further management. Lab Data Lab results reviewed: Yes I reviewed the patient's lab results Labs: Lab Results 02/24/24 02/24/24 02/24/24 Range/Units 16:52 16:52 16:52 WBC (4.50-11.00) K/uL RBC (4.00-5.20) m/uL Hgb (12.0-16.0) gm/dL Hct (33.0-51.0) % MCV (80-100) fL MCH (26-34) pg MCHC (32-36) gm/dL RDW Coeff of Cherelle (11.5-15.5) % Plt Count (140-440) K/uL Neut % (Auto) (42.0-72.0) % Lymph % (Auto) (20-44) % [place] % (Auto) (0.0-11.0) % Eos % (Auto) (0.0-7.0) % Baso % (Auto) (0.0-3.0) % Neut # (Auto) (1.7-7.0) K/uL Lymph # (Auto) (0.90-2.90) K/uL [place] # (Auto) (0.00-0.90) K/UL Eos # (Auto) (0.00-0.50) K/uL Baso # (Auto) (0.00-0.30) K/uL Abs Immat Gran (auto) (0.00-0.30) K/uL Imm/Tot Granulo (auto) % VBG pH 7.219 L* (7.32-7.43) VBG pCO2 40 (40-50) mmHG VBG pO2 38.5 (25-47) mmHG VBG HCO3 17 L (21-28) mmol/L Sodium Cancelled 134 L Potassium Cancelled 4.8 Chloride Cancelled Carbon Dioxide Anion Gap BUN Creatinine Estimated Creat Clear Estimated GFR Glucose Lactate (0.5-1.9) mmol/L Calcium Magnesium (1.5-2.6) mg/dL Total Bilirubin (0.1-1.5) mg/dL Direct Bilirubin (0.0-0.5) mg/dL AST (12-35) U/L ALT (4-35) U/L Alkaline Phosphatase (40-150) U/L C-Reactive Protein Total Protein (6.0-8.3) g/dL Albumin (3.3-5.0) g/dL POC Glucose (60-115) mg/dl 02/24/24 02/24/24 02/24/24 Range/Units 16:52 16:52 16:52 WBC (4.50-11.00) K/uL RBC (4.00-5.20) m/uL Hgb (12.0-16.0) gm/dL Hct (33.0-51.0) % MCV (80-100) fL MCH (26-34) pg MCHC (32-36) gm/dL RDW Coeff of Cherelle (11.5-15.5) % Plt Count (140-440) K/uL Neut % (Auto) (42.0-72.0) % Lymph % (Auto) (20-44) % [place] % (Auto) (0.0-11.0) % Eos % (Auto) (0.0-7.0) % Baso % (Auto) (0.0-3.0) % Neut # (Auto) (1.7-7.0) K/uL Lymph # (Auto) (0.90-2.90) K/uL [place] # (Auto) (0.00-0.90) K/UL Eos # (Auto) (0.00-0.50) K/uL Baso # (Auto) (0.00-0.30) K/uL Abs Immat Gran (auto) (0.00-0.30) K/uL Imm/Tot Granulo (auto) % VBG pH (7.32-7.43) VBG pCO2 (40-50) mmHG VBG pO2 (25-47) mmHG VBG HCO3 (21-28) mmol/L Sodium Potassium Chloride 97 Carbon Dioxide Cancelled 12 L Anion Gap Cancelled 25 H BUN Cancelled Creatinine Estimated Creat Clear Estimated GFR Glucose Lactate (0.5-1.9) mmol/L Calcium Magnesium (1.5-2.6) mg/dL Total Bilirubin (0.1-1.5) mg/dL Direct Bilirubin (0.0-0.5) mg/dL AST (12-35) U/L ALT (4-35) U/L Alkaline Phosphatase (40-150) U/L C-Reactive Protein Total Protein (6.0-8.3) g/dL Albumin (3.3-5.0) g/dL POC Glucose (60-115) mg/dl 02/24/24 02/24/24 02/24/24 Range/Units 16:52 16:52 16:52 WBC (4.50-11.00) K/uL RBC (4.00-5.20) m/uL Hgb (12.0-16.0) gm/dL Hct (33.0-51.0) % MCV (80-100) fL MCH (26-34) pg MCHC (32-36) gm/dL RDW Coeff of Cherelle (11.5-15.5) % Plt Count (140-440) K/uL Neut % (Auto) (42.0-72.0) % Lymph % (Auto) (20-44) % [place] % (Auto) (0.0-11.0) % Eos % (Auto) (0.0-7.0) % Baso % (Auto) (0.0-3.0) % Neut # (Auto) (1.7-7.0) K/uL Lymph # (Auto) (0.90-2.90) K/uL [place] # (Auto) (0.00-0.90) K/UL Eos # (Auto) (0.00-0.50) K/uL Baso # (Auto) (0.00-0.30) K/uL Abs Immat Gran (auto) (0.00-0.30) K/uL Imm/Tot Granulo (auto) % VBG pH (7.32-7.43) VBG pCO2 (40-50) mmHG VBG pO2 (25-47) mmHG VBG HCO3 (21-28) mmol/L Sodium Potassium Chloride Carbon Dioxide Anion Gap BUN 17 Creatinine Cancelled 0.6 Estimated Creat Clear Cancelled 137.04 Estimated GFR Cancelled Glucose Lactate (0.5-1.9) mmol/L Calcium Magnesium (1.5-2.6) mg/dL Total Bilirubin (0.1-1.5) mg/dL Direct Bilirubin (0.0-0.5) mg/dL AST (12-35) U/L ALT (4-35) U/L Alkaline Phosphatase (40-150) U/L C-Reactive Protein Total Protein (6.0-8.3) g/dL Albumin (3.3-5.0) g/dL POC Glucose (60-115) mg/dl 02/24/24 02/24/24 02/24/24 Range/Units 16:52 16:52 16:52 WBC (4.50-11.00) K/uL RBC (4.00-5.20) m/uL Hgb (12.0-16.0) gm/dL Hct (33.0-51.0) % MCV (80-100) fL MCH (26-34) pg MCHC (32-36) gm/dL RDW Coeff of Cherelle (11.5-15.5) % Plt Count (140-440) K/uL Neut % (Auto) (42.0-72.0) % Lymph % (Auto) (20-44) % [place] % (Auto) (0.0-11.0) % Eos % (Auto) (0.0-7.0) % Baso % (Auto) (0.0-3.0) % Neut # (Auto) (1.7-7.0) K/uL Lymph # (Auto) (0.90-2.90) K/uL [place] # (Auto) (0.00-0.90) K/UL Eos # (Auto) (0.00-0.50) K/uL Baso # (Auto) (0.00-0.30) K/uL Abs Immat Gran (auto) (0.00-0.30) K/uL Imm/Tot Granulo (auto) % VBG pH (7.32-7.43) VBG pCO2 (40-50) mmHG VBG pO2 (25-47) mmHG VBG HCO3 (21-28) mmol/L Sodium Potassium Chloride Carbon Dioxide Anion Gap BUN Creatinine Estimated Creat Clear Estimated GFR 123 Glucose Cancelled 490 H* Lactate 3.6 H (0.5-1.9) mmol/L Calcium Cancelled 10.0 Magnesium 2.1 (1.5-2.6) mg/dL Total Bilirubin 0.9 (0.1-1.5) mg/dL Direct Bilirubin 0.6 H (0.0-0.5) mg/dL AST 26 (12-35) U/L ALT 22 (4-35) U/L Alkaline Phosphatase 141 (40-150) U/L C-Reactive Protein Cancelled Total Protein (6.0-8.3) g/dL Albumin (3.3-5.0) g/dL POC Glucose (60-115) mg/dl 02/24/24 02/24/24 02/24/24 Range/Units 16:52 17:00 17:45 WBC 11.13 H (4.50-11.00) K/uL RBC 4.94 (4.00-5.20) m/uL Hgb 14.8 (12.0-16.0) gm/dL Hct 44.4 (33.0-51.0) % MCV 90 (80-100) fL MCH 30 (26-34) pg MCHC 33 (32-36) gm/dL RDW Coeff of Cherelle 12.6 (11.5-15.5) % Plt Count 348 (140-440) K/uL Neut % (Auto) 87.5 H (42.0-72.0) % Lymph % (Auto) 7.0 L (20-44) % [place] % (Auto) 4.4 (0.0-11.0) % Eos % (Auto) 0.2 (0.0-7.0) % Baso % (Auto) 0.6 (0.0-3.0) % Neut # (Auto) 9.70 H (1.7-7.0) K/uL Lymph # (Auto) 0.80 L (0.90-2.90) K/uL [place] # (Auto) 0.50 (0.00-0.90) K/UL Eos # (Auto) 0.00 (0.00-0.50) K/uL Baso # (Auto) 0.10 (0.00-0.30) K/uL Abs Immat Gran (auto) 0.00 (0.00-0.30) K/uL Imm/Tot Granulo (auto) 0.3 % VBG pH (7.32-7.43) VBG pCO2 (40-50) mmHG VBG pO2 (25-47) mmHG VBG HCO3 (21-28) mmol/L Sodium Potassium Chloride Carbon Dioxide Anion Gap BUN Creatinine Estimated Creat Clear Estimated GFR Glucose Lactate (0.5-1.9) mmol/L Calcium Magnesium (1.5-2.6) mg/dL Total Bilirubin (0.1-1.5) mg/dL Direct Bilirubin (0.0-0.5) mg/dL AST (12-35) U/L ALT (4-35) U/L Alkaline Phosphatase (40-150) U/L C-Reactive Protein 0.6 Total Protein 8.5 H (6.0-8.3) g/dL Albumin 5.4 H (3.3-5.0) g/dL POC Glucose 362 H* (60-115) mg/dl Critical Care Time Critical Care Time Total Critical Care Time in Minutes: 60 Discharge Plan Discharge Clinical Impression: DKA (diabetic ketoacidosis) Patient Disposition: Admitted As Observation Condition: Guarded Prescriptions: No Action insulin lispro [Humalog U-100 Insulin] 100 unit/mL solution 60 - 80 unit subcut DAILY (DME) Dexcom G6 Sensor Device See Rx Instructions .ROUTE [id number] Qty: 1 Rx Instructions: As directed (DME) Dexcom G6 Transmitter Device See Rx Instructions .ROUTE [id number] Qty: 1 Rx Instructions: As directed promethazine 12.5 mg tablet 12.5 mg PO QID tretinoin [Retin-A] 0.05 % cream 1 applic topical QPM clonidine HCl 0.1 mg tablet 0.2 mg PO HS lamotrigine 200 mg tablet 200 mg PO HS Rx Instructions: plus 50 mg dose lamotrigine 25 mg tablet 50 mg PO HS ondansetron 4 mg tablet,disintegrating 4 mg PO Q8H PRN spironolactone 50 mg tablet 50 mg PO HS clindamycin phosphate 1 % lotion 1 applic topical QAM Follow Up/Referrals: Delia Yu MD [Primary Care Provider] -
[2024-02-24 18:21] LABS: PCR FLU A Negative PCR FLU A (Negative); PCR FLU B Negative PCR FLU B (Negative); PCR RSV Negative PCR RSV (Negative); SARS PCR* Negative SARS-CoV-2 (Negative)
[2024-02-24 19:05] LABS: Thyroid Stimulating Hormone* 0.781 uIU/mL (0.270-4.20)
[2024-02-24 20:13] LABS: HCO3 VBG 21 mmol/L (21-28); Lactate* 1.7 mmol/L (0.5-1.9); PCO2 VBG 45 mmHG (40-50); PO2 VBG < 30.1 mmHG (25-47); pH VBG 7.288 (7.32-7.43)
[2024-02-24] MEDS: 5 % DEX/0.9 SOD CHL+KCL 20 mEq 1,000 ML 150 ML IV (20:14)
[2024-02-24] MEDS: ACETAMINOPHEN 325 MG TABLET 975 MG PO (20:15)
[2024-02-24] MEDS: SODIUM CHLORIDE 0.9 % (FLUSH) 10 ML SYRINGE 5 ML IVF (20:21)
--- NOTE | 2024-02-24 20:29 | P.IMHP_ITS ---
Hospitalist- H&P: KATHERIN History of Present Illness Date Seen: 02/24/24 Chief complaint: Diabetic, ketones, vomiting Narrative: Lucia Villatoro is a 33 year old female significant for poorly controlled diabetes mellitus type 1, gastroparesis, and anxiety who presented through the emergency department for the 3rd time in the past 2 months with DKA. She is known to me from the 1st of these 3 admissions for DKA. She is a vegetarian and with gastroparesis, she has a poor relationship with food. Last time I saw her few months ago, we discussed vegetarian protein sources and I encouraged her to get more protein in her diet as this would likely even out her sugars. She tells me that she has been eating eggs and peanut butter and sometimes toe for, but cannot eat much solid food the gastroparesis. Therefore she tends to drink a lot of protein shakes. She tells me that she does not know if what she eats is digesting or absorbing quickly enough and so she worries about getting hypoglycemic. When asked, she does admit that she has not had true hypoglycemia in a very long time. In fact his been several months since she has had a glucose under 200. She has never had a seizure or blacked out from low blood sugar, in fact she does not feel symptomatic, noting that she considers a blood sugar of 100 to be ?low.? She has been using very small, infrequent boluses despite having sugars in the 300s to 400s in the last few weeks. She tells me that she feels bad all the time, so she did not know that she was becoming ketotic. Today she was in [place] for an appointment with her foreign service officer. Her foreign service officer would like her to use her pump in ?active mode,? which she tells me will auto-administer insulin based on her continue blood sugar monitoring. She became tearful about this noting that she is concerned to let it do this since she is fearful that it will cause her to have low blood sugars. She tells me that when she gets a blood sugar in the 100 range, she has tried glucose gel or juice, but it takes many hours and sometimes up to 14 glasses of juice to bring her blood sugar up. She tells me it is an all-night process and she is afraid to go to sleep for fear that it will go too low while she is sleeping. She denies any recent illness, cough, cold, or sick contacts. Review of Systems Status of ROS: Reports: 10 or more systems reviewed and unremarkable except as noted in History and below PFSH PFS Medical History (Updated 02/24/24 @ 21:00 by Esther Enrique MD) Type 1 diabetes mellitus ?E10.9 - Type 1 diabetes mellitus without complications (ICD-10) Hidradenitis suppurativa ?L73.2 - Hidradenitis suppurativa (ICD-10) Depression ?F32.A - Depression, unspecified (ICD-10) Anxiety ?F41.9 - Anxiety disorder, unspecified (ICD-10) Eating disorder ?F50.9 - Eating disorder, unspecified (ICD-10) Medical cannabis use ?Z79.899 - Other marine oil terminal superintendent (current) drug therapy (ICD-10) Alcohol use disorder ?F10.90 - Alcohol use, unspecified, uncomplicated (ICD-10) Hyperlipidemia ?E78.5 - Hyperlipidemia, unspecified (ICD-10) Bipolar 2 disorder ?F31.81 - Bipolar II disorder (ICD-10) Diabetic gastroparesis ?E11.43 - Type 2 diabetes mellitus with diabetic autonomic (poly)neuropathy (ICD-10) ?K31.84 - Gastroparesis (ICD-10) Diabetic retinopathy ?E11.319 - Type 2 diabetes mellitus with unspecified diabetic retinopathy without macular edema (ICD-10) Surgical History History of esophagogastroduodenoscopy (EGD) ?Z98.890 - Other specified postprocedural states (ICD-10) Social History (Updated 02/24/24 @ 20:48 by Esther Enrique MD) Narrative: She lives in [place]. She drinks alcohol occasionally. Uses cannabis daily. Previously used E cigarettes. Does not currently smoke. , - Adolfo. Patient's and her mother are with her tonight. What is your current living situation?: I presently have a place to live Problems where you live: no known problems Problems where you live details: none In the past 12 months, utilities in danger of being shut off: no In the past 12 mos, have been you worried that your food would run out before you had money to buy more?: never true In the past 12 mos, the food you bought just didn't last and you didn't have money to buy more?: never true Highest level of school completed/degree received: some college, no degree Smoking Status: Never smoker Do you use any of these nicotine containing products: None How often do you have a drink containing alcohol: 2-3 times a week Alcohol type: beer How often do you have six or more drinks on one occasion: Never AUDIT-C Alcohol total score: 3 Non-prescribed substance use: marijuana (any form) How often does anyone, including family, friends and others, physically hurt you : never How often does anyone, including family, friends and others, insult or talk down to you: never How often does anyone, including family, friends and others, threaten you with harm: never How often does anyone, including family, friends and others, scream or curse at you: never service: No Meds Home Medications and Allergies Home Medications ?Medication ?Instructions ?Recorded ?Confirmed ?Type blood-glucose sensor (Dexcom G6 #1 ea 03/23/23 02/12/24 History Sensor device) blood-glucose transmitter (Dexcom #1 ea 03/23/23 02/12/24 History G6 Transmitter device) insulin lispro 100 unit/mL 60 - 80 unit subcut DAILY 03/23/23 02/11/24 History subcutaneous solution (Humalog U-100 Insulin) clonidine HCl 0.1 mg tablet 0.2 mg PO HS 01/01/24 02/12/24 History lamotrigine 200 mg tablet 200 mg PO HS 01/01/24 02/11/24 History lamotrigine 25 mg tablet 50 mg PO HS 01/01/24 02/11/24 History ondansetron 4 mg disintegrating 4 mg PO Q8H PRN 01/01/24 02/11/24 History tablet spironolactone 50 mg tablet 50 mg PO HS 01/01/24 02/12/24 History clindamycin phosphate 1 % lotion 1 applic topical QAM 01/11/24 02/11/24 History promethazine 12.5 mg tablet 12.5 mg PO QID 02/11/24 02/11/24 History tretinoin 0.05 % topical cream 1 applic topical QPM 02/11/24 02/11/24 History (Retin-A) Allergies Allergy/AdvReac Type Severity Reaction Status Date / Time Sulfa (Sulfonamide Allergy Verified 02/11/24 14:53 Antibiotics) Exam Narrative: Exam Narrative: General: Anxious, tearful at times. Awake alert oriented x3. HEENT: Normocephalic atraumatic, pupils equally round and reactive to light and accommodation. Oropharynx clear. Mucous membranes are moist. No cervical lymphadenopathy, thyromegaly or carotid bruits. No JVD. Cardiovascular: Tachycardia, regular. No murmurs, gallops, or rubs. Chest: No increased work of breathing. Clear to auscultation bilaterally. No crackles or wheezes. Abdomen: Bowel sounds present. Soft, nondistended, nontender. No hepatosplenomegaly or masses. Extremities: No edema, no cyanosis or clubbing. Skin: No jaundice, no pallor, no rashes on visible skin. Neuro: Grossly intact. No focal deficits. Const: Vital Signs, click to edit/add: Vital Signs - 24 hr 02/24/24 16:10 02/24/24 17:30 02/24/24 17:31 Temperature 97.0 F L Pulse Rate 102 H 103 H Pulse Rate [Left P ulse Oximeter] Pulse Rate [Pulse Oximeter] 113 H Respiratory Rate 18 Blood Pressure 123/68 Blood Pressure [Le ft Arm] Blood Pressure [Ri ght Upper Arm] 114/78 Pulse Oximetry 100 100 100 Oxygen Delivery Me thod Room Air 02/24/24 17:45 02/24/24 18:00 02/24/24 18:01 Temperature Pulse Rate 106 H 112 H 111 H Pulse Rate [Left P ulse Oximeter] Pulse Rate [Pulse Oximeter] Respiratory Rate Blood Pressure 140/89 H Blood Pressure [Le ft Arm] Blood Pressure [Ri ght Upper Arm] Pulse Oximetry 100 100 98 Oxygen Delivery Me thod 02/24/24 18:15 02/24/24 19:00 02/24/24 20:00 Temperature 98.6 F 98.5 F Pulse Rate 102 H Pulse Rate [Left P ulse Oximeter] 112 H 103 H Pulse Rate [Pulse Oximeter] Respiratory Rate 18 20 Blood Pressure Blood Pressure [Le ft Arm] 136/101 H 131/88 Blood Pressure [Ri ght Upper Arm] Pulse Oximetry 100 100 100 Oxygen Delivery Me thod Room Air Room Air Hospitalist - H&P: Result Labs Labs: Short CBC 02/24/24 Range/Units 17:00 WBC 11.13 H (4.50-11.00) K/uL Hgb 14.8 (12.0-16.0) gm/dL Hct 44.4 (33.0-51.0) % Plt Count 348 (140-440) K/uL BMP 02/24/24 02/24/24 02/24/24 16:52 16:52 16:52 Sodium Cancelled 134 L Potassium Cancelled 4.8 Chloride Cancelled Carbon Dioxide BUN Creatinine Glucose Calcium 02/24/24 02/24/24 02/24/24 16:52 16:52 16:52 Sodium Potassium Chloride 97 Carbon Dioxide Cancelled 12 L BUN Cancelled 17 Creatinine Cancelled Glucose Calcium 02/24/24 02/24/24 02/24/24 16:52 16:52 16:52 Sodium Potassium Chloride Carbon Dioxide BUN Creatinine 0.6 Glucose Cancelled 490 H* Calcium Cancelled 10.0 02/24/24 20:07 Sodium Cancelled Potassium Cancelled Chloride Cancelled Carbon Dioxide Cancelled BUN Cancelled Creatinine Cancelled Glucose Cancelled Calcium Cancelled Liver Function 02/24/24 Range/Units 16:52 Total Bilirubin 0.9 (0.1-1.5) mg/dL Direct Bilirubin 0.6 H (0.0-0.5) mg/dL AST 26 (12-35) U/L ALT 22 (4-35) U/L Alkaline Phosphatase 141 (40-150) U/L Albumin 5.4 H (3.3-5.0) g/dL Assessment and Plan Assessment and plan (1) DKA (diabetic ketoacidosis): Problem comment: - initial pH 7.21, glucose 490, K 4.8, lactate 3.6 - no evidence of infectious process - probable cause: patient has persistent fear of hypoglycemia or even having normal blood sugars, despite blood sugars not being below 200 for several months, she underutilizes insulin due to this fear - BG is coming down quickly after regular insulin bolus and initiation of insulin drip - Continue insulin drip (hold patient's pump), since blood glucose in under 250 and K is under 5, will start D5NS + 20 KCL at 150cc/hr, start clear liquid diet and advance to diabetic diet as able. pH greater than 7, so no indication for bicarb. Patient takes spironolactone, so I will monitor K carefully and may need to use IVF without K if it trends up. - Monitor BMP, VBG, lactate. Check Upreg. TSH wnl. UA and Utox pending. Status: Acute (2) Type 1 diabetes mellitus: Problem comment: - 02/12/24 A1C 8.7% (higher than baseline) - 02/24/24 saw Data Visualization Developer who recommended she use her pump on active mode, which will automatically adjust insulin based on blood glucose. Patient expresses anxiety about doing this. She has not started it yet because this appointment was right before she came to the ER. This mode could be utilized when transitioning off insulin drip tomorrow morning. Status: Chronic (3) Anxiety about health: Problem comment: - Fear of hypoglycemia contributing to uncontrolled DM1 leading to DKA. Patient states she is working with a therapist. We discussed that highs are very problematic for her lately and she should be shooting for a goal glucose under 200. Status: Acute (4) Diabetic gastroparesis: Problem comment: - with chronic nausea and vomiting - followed by [facility], plans to have gastric stimulator placed for this Status: Chronic (5) Eating disorder: Status: Chronic
[2024-02-24 20:41] LABS: Chloride* 107 mmol/L (96-114); Potassium* 4.4 mmol/L (3.6-5.1); Sodium* 139 mmol/L (135-149)
[2024-02-24 20:44] LABS: Anion Gap 13 mEq/L (7-15); Blood Urea Nitrogen* 16 mg/dL (5-24); Carbon Dioxide* 19 mmol/L (20-32); Creatinine* 0.5 mg/dL (0.5-1.5); Est. Creatinine Clearance* 164.45; Estimated Glomerular Filt Rate 129 ml/min; Glucose* 170 mg/dL (60-115)
[2024-02-24 20:45] LABS: Calcium* 8.8 mg/dL (8.4-10.6); Phosphorus* 2.3 mg/dL (2.5-4.5)
[2024-02-24 20:52] LABS: Appearance Urine Clear (Clear); Bilirubin Urine Negative (Negative); Blood Urine 1+ (Negative); Color Urine Yellow (Yellow); Glucose Urine Trace (Negative); Ketones Urine 4+ (Negative); Leukocyte Esterase Urine Negative (Negative); Nitrite Urine Negative (Negative); Protein Urine 1+ (Negative); Specific Gravity Urine >= 1.030 (1.000-1.030); Urobilinogen Urine 0.2 (0.2-1.0)
[2024-02-24 20:57] LABS: Ur HCG Qualitative* Negative (Negative)
[2024-02-24 21:01] LABS: Amphetamine Screen Urine Negative (Negative); Barbiturate Screen Urine Negative (Negative); Benzodiazepines Screen Urine Negative (Negative); Cannabinoid Screen Urine POSITIVE (Negative); Cocaine Screen Urine Negative (Negative); Methadone Screen Urine Negative (Negative); Methamphetamines Screen Urine Negative (Negative); Opiate Screen Urine Negative (Negative); Oxycodone Screen Urine Negative (Negative); Phencyclidine Screen Urine Negative (Negative); Tricyclic Antidepressant Urine Negative (Negative)
[2024-02-24 21:28] LABS: RBC Urine 0-2 (0-2); WBC Urine 0-2 (0-5)
[2024-02-25] VITALS (7 sets, daily range): BP systolic 105–147; BP diastolic 67–92; PULSE 84–104; RESP 16–18; TEMP 36.4–37.2; O2SAT 98–100; BMI 23.6
[2024-02-25 00:26] LABS: HCO3 VBG 24 mmol/L (21-28); Lactate* 1.6 mmol/L (0.5-1.9); PCO2 VBG 44 mmHG (40-50); PO2 VBG < 30.1 mmHG (25-47); pH VBG 7.346 (7.32-7.43)
[2024-02-25 00:49] LABS: Chloride* 108 mmol/L (96-114); Sodium* 135 mmol/L (135-149)
[2024-02-25 00:50] LABS: Potassium* 4.2 mmol/L (3.6-5.1)
[2024-02-25 00:52] LABS: Creatinine* 0.4 mg/dL (0.5-1.5); Est. Creatinine Clearance* 205.57; Estimated Glomerular Filt Rate 136 ml/min
[2024-02-25 00:53] LABS: Anion Gap 4 mEq/L (7-15); Blood Urea Nitrogen* 13 mg/dL (5-24); Calcium* 8.3 mg/dL (8.4-10.6); Carbon Dioxide* 23 mmol/L (20-32); Glucose* 117 mg/dL (60-115)
[2024-02-25] MEDS: 5 % DEX/0.9 SOD CHL+KCL 20 mEq 1,000 ML 150 ML IV (02:49)
[2024-02-25 04:12] LABS: HCO3 VBG 24 mmol/L (21-28); Lactate* 1.5 mmol/L (0.5-1.9); PCO2 VBG 43 mmHG (40-50); PO2 VBG < 30.1 mmHG (25-47); pH VBG 7.358 (7.32-7.43)
[2024-02-25 04:27] LABS: Chloride* 108 mmol/L (96-114); Potassium* 3.8 mmol/L (3.6-5.1); Sodium* 134 mmol/L (135-149)
[2024-02-25 04:30] LABS: Anion Gap 4 mEq/L (7-15); Blood Urea Nitrogen* 10 mg/dL (5-24); Carbon Dioxide* 22 mmol/L (20-32); Creatinine* 0.4 mg/dL (0.5-1.5); Est. Creatinine Clearance* 205.57; Estimated Glomerular Filt Rate 136 ml/min; Glucose* 167 mg/dL (60-115)
[2024-02-25 04:31] LABS: Calcium* 8.1 mg/dL (8.4-10.6)
--- NOTE | 2024-02-25 06:36 | PC.NURSE ---
[id number]: Patient pleasant and cooperative. Independent in room. Zofran x1 for nausea. Tolerating diabetic diet. Followed Insulin Drip Protocol per MD with Q1H BG checks. Denies CP. Eating and voiding.
[2024-02-25] MEDS: ACETAMINOPHEN 325 MG TABLET 975 MG PO (07:32)
--- NOTE | 2024-02-25 11:50 | PC.SOCIAL ---
Discharge planning: blow off worker met with pt today as she is a readmission to the hospital from earlier this month. blow off worker asked the pt if she felt she has all the help and information she needs to manage her Type 1 Diabetes. Pt said she felt that she did. blow off worker asked pt about her support system or someone that she can turn to if and when she becomes frustrated or overwhelmed with managing her disease. Pt stated that she has her and her mother just moved back into town. Pt stated they are both huge supports for her. Pt stated that she also sees a talk therapist and that is a big support for her. Social work to follow-up as needed.
--- NOTE | 2024-02-25 12:53 | P.IMHP_ITS ---
Hospitalist- H&P: HPI History of Present Illness Date Seen: 02/25/24 Chief complaint: Diabetic, ketones, vomiting PFSH [facility] Medical History (Updated 02/24/24 @ 21:00 by Esther Enrique MD) Type 1 diabetes mellitus ?E10.9 - Type 1 diabetes mellitus without complications (ICD-10) Hidradenitis suppurativa ?L73.2 - Hidradenitis suppurativa (ICD-10) Depression ?F32.A - Depression, unspecified (ICD-10) Anxiety ?F41.9 - Anxiety disorder, unspecified (ICD-10) Eating disorder ?F50.9 - Eating disorder, unspecified (ICD-10) Medical cannabis use ?Z79.899 - Other terminal operations manager (current) drug therapy (ICD-10) Alcohol use disorder ?F10.90 - Alcohol use, unspecified, uncomplicated (ICD-10) Hyperlipidemia ?E78.5 - Hyperlipidemia, unspecified (ICD-10) Bipolar 2 disorder ?F31.81 - Bipolar II disorder (ICD-10) Diabetic gastroparesis ?E11.43 - Type 2 diabetes mellitus with diabetic autonomic (poly)neuropathy (ICD-10) ?K31.84 - Gastroparesis (ICD-10) Diabetic retinopathy ?E11.319 - Type 2 diabetes mellitus with unspecified diabetic retinopathy without macular edema (ICD-10) Surgical History History of esophagogastroduodenoscopy (EGD) ?Z98.890 - Other specified postprocedural states (ICD-10) Social History (Updated 02/24/24 @ 20:48 by Esther Enrique MD) Narrative: She lives in [place]. She drinks alcohol occasionally. Uses cannabis daily. Previously used E cigarettes. Does not currently smoke. , - Adolfo. Patient's and her mother are with her tonight. What is your current living situation?: I presently have a place to live Problems where you live: no known problems Problems where you live details: none In the past 12 months, utilities in danger of being shut off: no In the past 12 mos, have been you worried that your food would run out before you had money to buy more?: never true In the past 12 mos, the food you bought just didn't last and you didn't have money to buy more?: never true Are you following a special diet: Yes (patient is vegetarian, however does eat eggs) Highest level of school completed/degree received: some college, no degree Smoking Status: Never smoker Do you use any of these nicotine containing products: None Second hand tobacco smoke exposure: No How often do you have a drink containing alcohol: 2-3 times a week Alcohol type: beer How often do you have six or more drinks on one occasion: Never AUDIT-C Alcohol total score: 3 Non-prescribed substance use: marijuana (any form) Caffeine: Yes How often does anyone, including family, friends and others, physically hurt you : never How often does anyone, including family, friends and others, insult or talk down to you: never How often does anyone, including family, friends and others, threaten you with harm: never How often does anyone, including family, friends and others, scream or curse at you: never service: No Meds Home Medications and Allergies Home Medications ?Medication ?Instructions ?Recorded ?Confirmed ?Type blood-glucose sensor (Dexcom G6 #1 ea 03/23/23 02/12/24 History Sensor device) blood-glucose transmitter (Dexcom #1 ea 03/23/23 02/12/24 History G6 Transmitter device) insulin lispro 100 unit/mL 60 - 80 unit subcut DAILY 03/23/23 02/11/24 History subcutaneous solution (Humalog U-100 Insulin) clonidine HCl 0.1 mg tablet 0.2 mg PO HS 01/01/24 02/25/24 History lamotrigine 200 mg tablet 200 mg PO HS 01/01/24 02/25/24 History lamotrigine 25 mg tablet 50 mg PO HS 01/01/24 02/25/24 History spironolactone 50 mg tablet 50 mg PO HS 01/01/24 02/12/24 History promethazine 12.5 mg tablet 12.5 mg PO QID 02/11/24 02/11/24 History tretinoin 0.05 % topical cream 1 applic topical QPM 02/11/24 02/11/24 History (Retin-A) Allergies Allergy/AdvReac Type Severity Reaction Status Date / Time Sulfa (Sulfonamide Allergy Verified 02/11/24 14:53 Antibiotics) Exam Const: Vital Signs, click to edit/add: Vital Signs - 24 hr 02/24/24 16:10 02/24/24 17:30 02/24/24 17:31 Temperature 97.0 F L Pulse Rate 102 H 103 H Pulse Rate [Left P ulse Oximeter] Pulse Rate [Pulse Oximeter] 113 H Respiratory Rate 18 Blood Pressure 123/68 Blood Pressure [Le ft Arm] Blood Pressure [Ri ght Upper Arm] 114/78 Pulse Oximetry 100 100 100 Oxygen Delivery Me thod Room Air 02/24/24 17:45 02/24/24 18:00 02/24/24 18:01 Temperature Pulse Rate 106 H 112 H 111 H Pulse Rate [Left P ulse Oximeter] Pulse Rate [Pulse Oximeter] Respiratory Rate Blood Pressure 140/89 H Blood Pressure [Le ft Arm] Blood Pressure [Ri ght Upper Arm] Pulse Oximetry 100 100 98 Oxygen Delivery Me thod 02/24/24 18:15 02/24/24 19:00 02/24/24 20:00 Temperature 98.6 F 98.5 F Pulse Rate 102 H Pulse Rate [Left P ulse Oximeter] 112 H 103 H Pulse Rate [Pulse Oximeter] Respiratory Rate 18 20 Blood Pressure Blood Pressure [Le ft Arm] 136/101 H 131/88 Blood Pressure [Ri ght Upper Arm] Pulse Oximetry 100 100 100 Oxygen Delivery Me thod Room Air Room Air 02/24/24 22:15 02/24/24 23:00 02/25/24 00:26 Temperature 98.2 F 97.8 F Pulse Rate Pulse Rate [Left P ulse Oximeter] 95 89 Pulse Rate [Pulse Oximeter] Respiratory Rate 18 18 18 Blood Pressure Blood Pressure [Le ft Arm] 113/74 114/74 Blood Pressure [Ri ght Upper Arm] Pulse Oximetry 98 98 99 Oxygen Delivery Me thod Room Air Room Air Room Air 02/25/24 02:57 02/25/24 05:32 02/25/24 07:25 Temperature 97.7 F 97.5 F L 97.5 F L Pulse Rate Pulse Rate [Left P ulse Oximeter] 84 84 86 Pulse Rate [Pulse Oximeter] Respiratory Rate 18 16 18 Blood Pressure Blood Pressure [Le ft Arm] 105/67 107/68 115/72 Blood Pressure [Ri ght Upper Arm] Pulse Oximetry 98 98 99 Oxygen Delivery Me thod Room Air Room Air Room Air 02/25/24 08:00 02/25/24 11:35 Temperature 97.5 F L Pulse Rate Pulse Rate [Left P ulse Oximeter] 104 H Pulse Rate [Pulse Oximeter] Respiratory Rate 18 18 Blood Pressure Blood Pressure [Le ft Arm] 135/92 H Blood Pressure [Ri ght Upper Arm] Pulse Oximetry 99 100 Oxygen Delivery Me thod Room Air Room Air Hospitalist - H&P: Result Labs Labs: Short CBC 02/24/24 Range/Units 17:00 WBC 11.13 H (4.50-11.00) K/uL Hgb 14.8 (12.0-16.0) gm/dL Hct 44.4 (33.0-51.0) % Plt Count 348 (140-440) K/uL BMP 02/24/24 02/24/24 02/24/24 16:52 16:52 16:52 Sodium Cancelled 134 L Potassium Cancelled 4.8 Chloride Cancelled Carbon Dioxide BUN Creatinine Glucose Calcium 02/24/24 02/24/24 02/24/24 16:52 16:52 16:52 Sodium Potassium Chloride 97 Carbon Dioxide Cancelled 12 L BUN Cancelled 17 Creatinine Cancelled Glucose Calcium 02/24/24 02/24/24 02/24/24 16:52 16:52 16:52 Sodium Potassium Chloride Carbon Dioxide BUN Creatinine 0.6 Glucose Cancelled 490 H* Calcium Cancelled 10.0 02/24/24 02/24/24 02/24/24 20:07 20:07 20:07 Sodium 139 Cancelled Potassium 4.4 Cancelled Chloride 107 Carbon Dioxide BUN Creatinine Glucose Calcium 02/24/24 02/24/24 02/24/24 20:07 20:07 20:07 Sodium Potassium Chloride Cancelled Carbon Dioxide 19 L Cancelled BUN 16 Cancelled Creatinine 0.5 Glucose Calcium 02/24/24 02/24/24 02/24/24 20:07 20:07 20:07 Sodium Potassium Chloride Carbon Dioxide BUN Creatinine Cancelled Glucose 170 H Cancelled Calcium 8.8 Cancelled 02/25/24 02/25/24 00:20 04:05 Sodium 135 134 L Potassium 4.2 3.8 Chloride 108 108 Carbon Dioxide 23 22 BUN 13 10 Creatinine 0.4 L 0.4 L Glucose 117 H 167 H Calcium 8.3 L 8.1 L Liver Function 02/24/24 Range/Units 16:52 Total Bilirubin 0.9 (0.1-1.5) mg/dL Direct Bilirubin 0.6 H (0.0-0.5) mg/dL AST 26 (12-35) U/L ALT 22 (4-35) U/L Alkaline Phosphatase 141 (40-150) U/L Albumin 5.4 H (3.3-5.0) g/dL Urine 02/24/24 Range/Units 16:33 Urine Color Yellow (Yellow) Urine Appearance Clear (Clear) Urine pH 6.0 (5.0-8.5) Ur Specific [place] >= 1.030 (1.000-1.030) Urine Protein 1+ A (Negative) Urine Glucose (UA) Trace A (Negative)
--- NOTE | 2024-02-25 13:03 | PM.DS1 ---
DS: Providers Provider Date Seen: 02/25/24 Date of admission: 02/24/24 21:32 Primary care physician: Delia Yu MD Admitting Clinician: Esther Enrique MD Attending Physician on discharge: Adolfo Foster MD Date of Discharge: 02/25/24 DS: Diagnosis Discharge Diagnosis (1) DKA (diabetic ketoacidosis): Status: Acute Problem details: - initial pH 7.21, glucose 490, K 4.8, lactate 3.6 - no evidence of infectious process - probable cause: patient has persistent fear of hypoglycemia or even having normal blood sugars, despite blood sugars not being below 200 for several months, she underutilizes insulin due to this fear - BG is coming down quickly after regular insulin bolus and initiation of insulin drip - Continue insulin drip (hold patient's pump), since blood glucose in under 250 and K is under 5, will start D5NS + 20 KCL at 150cc/hr, start clear liquid diet and advance to diabetic diet as able. pH greater than 7, so no indication for bicarb. Patient takes spironolactone, so I will monitor K carefully and may need to use IVF without K if it trends up. - Monitor BMP, VBG, lactate. Check Upreg. TSH wnl. UA and Utox pending. (2) Diabetic gastroparesis: Status: Chronic Problem details: - with chronic nausea and vomiting - followed by [facility], plans to have gastric stimulator placed for this (3) Anxiety about health: Status: Acute Problem details: - Fear of hypoglycemia contributing to uncontrolled DM1 leading to DKA. Patient states she is working with a therapist. We discussed that highs are very problematic for her lately and she should be shooting for a goal glucose under 200. (4) Type 1 diabetes mellitus: Status: Chronic Problem details: - 02/12/24 A1C 8.7% (higher than baseline) - 02/24/24 saw Marine Service Operator who recommended she use her pump on active mode, which will automatically adjust insulin based on blood glucose. Patient expresses anxiety about doing this. She has not started it yet because this appointment was right before she came to the ER. This mode could be utilized when transitioning off insulin drip tomorrow morning. (5) Eating disorder: Status: Chronic Problem details: Patient has multiple concerns about types of food, quantities of food, frequency of meals in light of her diabetes, gastroparesis and fear of hypoglycemia. DS: Summary Hospital Course Hospital Course: Lucia Villatoro is a 33 year old female with history of poorly controlled diabetes mellitus type 1, gastroparesis, and anxiety who presented through the emergency department for the 3rd time in the past 2 months with elevated blood sugars and acidosis. This is been thought partly due to DKA as well as starvation and recurrent vomiting related to gastroparesis. There have been ongoing conversations about food, macro nutrients, blood sugar control and hypo glycemia. Patient is concerned about hypoglycemia to the point that she does not like it when her blood sugar gets much below 200. She fears that she will not be able to adequately respond to her hypoglycemia. She believes that taking oral glucose will not work adequately for her due to her gastroparesis. She is vegetarian and is attempting to get protein through protein shakes and eggs. She has had some vomiting but not persistent. She is not using her insulin pump as her instrument panel assembler has advised. She is self managing because of her anxiety about blood sugars. She also has a CGM which has generally been working although today has been significantly off in its readings compared to our fingersticks. The day of admission she was in [place] for an appointment with her instrument panel assembler. Her instrument panel assembler would like her to use her pump in ?active mode,? which she tells me will auto-administer insulin based on her continue blood sugar monitoring. On admission she became tearful about this noting that she is concerned to let it do this since she is fearful that it will cause her to have low blood sugars. She tells me that when she gets a blood sugar in the 100 range, she has tried glucose gel or juice, but it takes many hours and sometimes up to 14 glasses of juice to bring her blood sugar up. She tells me it is an all-night process and she is afraid to go to sleep for fear that it will go too low while she is sleeping. She denies any recent illness, cough, cold, or sick contacts. She was treated overnight with insulin drip and IV fluid: D5NS with 20meqKCl. Blood sugars have been in the 150-200 range primarily. Electrolytes have normalized. She reports feeling fine. This morning her IV fluids and IV insulin were discontinued and she was put back on her insulin pump and given a regular diabetic diet. She agreed to use the exercise or active mode for her insulin pump. With this she continues to feel well. She has not had vomiting or abdominal pain. Her blood sugars got as high as 228. She is tolerating an oral diet quite well. Status at Discharge Functional status at discharge: independent ambulation Overall status at discharge: patient is back to baseline Time Spent with Patient Time attestation: Total time spent providing and/or coordinating discharge services: 50 minutes Time spent: Greater than 30 minutes Exam Narrative: Exam Narrative: She is alert and appears in no distress. Speech is normal. She is oriented to her circumstances. Mood and affect are bright and she is much less anxious than previously. Cooperative. Breathing is unlabored. Good capillary refill. Const: Vital Signs, click to edit/add: Vital Signs - 24 hr 02/24/24 16:10 02/24/24 17:30 02/24/24 17:31 Temperature 97.0 F L Pulse Rate 102 H 103 H Pulse Rate [Left P ulse Oximeter] Pulse Rate [Pulse Oximeter] 113 H Respiratory Rate 18 Blood Pressure 123/68 Blood Pressure [Le ft Arm] Blood Pressure [Ri ght Upper Arm] 114/78 Pulse Oximetry 100 100 100 Oxygen Delivery Me thod Room Air 02/24/24 17:45 02/24/24 18:00 02/24/24 18:01 Temperature Pulse Rate 106 H 112 H 111 H Pulse Rate [Left P ulse Oximeter] Pulse Rate [Pulse Oximeter] Respiratory Rate Blood Pressure 140/89 H Blood Pressure [Le ft Arm] Blood Pressure [Ri ght Upper Arm] Pulse Oximetry 100 100 98 Oxygen Delivery Me thod 02/24/24 18:15 02/24/24 19:00 02/24/24 20:00 Temperature 98.6 F 98.5 F Pulse Rate 102 H Pulse Rate [Left P ulse Oximeter] 112 H 103 H Pulse Rate [Pulse Oximeter] Respiratory Rate 18 20 Blood Pressure Blood Pressure [Le ft Arm] 136/101 H 131/88 Blood Pressure [Ri ght Upper Arm] Pulse Oximetry 100 100 100 Oxygen Delivery Me thod Room Air Room Air 02/24/24 22:15 02/24/24 23:00 02/25/24 00:26 Temperature 98.2 F 97.8 F Pulse Rate Pulse Rate [Left P ulse Oximeter] 95 89 Pulse Rate [Pulse Oximeter] Respiratory Rate 18 18 18 Blood Pressure Blood Pressure [Le ft Arm] 113/74 114/74 Blood Pressure [Ri ght Upper Arm] Pulse Oximetry 98 98 99 Oxygen Delivery Me thod Room Air Room Air Room Air 02/25/24 02:57 02/25/24 05:32 02/25/24 07:25 Temperature 97.7 F 97.5 F L 97.5 F L Pulse Rate Pulse Rate [Left P ulse Oximeter] 84 84 86 Pulse Rate [Pulse Oximeter] Respiratory Rate 18 16 18 Blood Pressure Blood Pressure [Le ft Arm] 105/67 107/68 115/72 Blood Pressure [Ri ght Upper Arm] Pulse Oximetry 98 98 99 Oxygen Delivery Me thod Room Air Room Air Room Air 02/25/24 08:00 02/25/24 11:35 Temperature 97.5 F L Pulse Rate Pulse Rate [Left P ulse Oximeter] 104 H Pulse Rate [Pulse Oximeter] Respiratory Rate 18 18 Blood Pressure Blood Pressure [Le ft Arm] 135/92 H Blood Pressure [Ri ght Upper Arm] Pulse Oximetry 99 100 Oxygen Delivery Me thod Room Air Room Air Documenting provider has reviewed patient's vital signs: yes DS: Data Data Completed and Pending Labs on day of discharge: Labs from last 24 hours 02/25/24 02/25/24 02/24/24 04:05 00:20 20:07 WBC RBC Hgb Hct MCV MCH MCHC RDW Coeff of Cherelle Plt Count Neut % (Auto) Lymph % (Auto) [place] % (Auto) Eos % (Auto) Baso % (Auto) Neut # (Auto) Lymph # (Auto) [place] # (Auto) Eos # (Auto) Baso # (Auto) Abs Immat Gran (auto) Imm/Tot Granulo (auto) VBG pH 7.358 7.346 VBG pCO2 43 44 VBG pO2 < 30.1 < 30.1 VBG HCO3 24 24 Sodium 134 L 135 Potassium 3.8 4.2 Chloride 108 108 Carbon Dioxide 22 23 Anion Gap 4 L 4 L BUN 10 13 Creatinine 0.4 L 0.4 L Estimated Creat Clear 205.57 205.57 Estimated GFR 136 136 Glucose 167 H 117 H Lactate 1.5 1.6 Calcium 8.1 L 8.3 L Cancelled Phosphorus 2.3 L Magnesium 2.0 Total Bilirubin Direct Bilirubin AST ALT Alkaline Phosphatase C-Reactive Protein Total Protein Albumin TSH HCG, Quant Cancelled Urine Color Urine Appearance Urine pH Ur Specific [place] Urine Protein Urine Glucose (UA) Urine Ketones Urine Blood Urine Nitrite Urine Bilirubin Urine Urobilinogen Ur Leukocyte Esterase Urine RBC Urine WBC Ur Squamous Epith Cells Urine Bacteria Urine HCG, Qual Urine Opiates Screen Ur Oxycodone Screen Urine Methadone Screen Ur Barbiturates Screen U Tricyclic Antidepress Ur Phencyclidine Scrn Ur Amphetamines Screen U Methamphetamines Scrn U Benzodiazepines Scrn Urine Cocaine Screen U Marijuana (THC) Screen Ur Drug Screen Comment SARS-CoV-2 (PCR) Influenza Type A (PCR) Influenza Type B (PCR) RSV (PCR) POC Glucose 02/24/24 02/24/24 02/24/24 20:07 20:07 20:07 WBC RBC Hgb Hct MCV MCH MCHC RDW Coeff of [place]herelle Plt Count Neut % (Auto) Lymph % (Auto) [place] % (Auto) Eos % (Auto) Baso % (Auto) Neut # (Auto) Lymph # (Auto) [place] # (Auto) Eos # (Auto) Baso # (Auto) Abs Immat Gran (auto) Imm/Tot Granulo (auto) VBG pH VBG pCO2 VBG pO2 VBG HCO3 Sodium Potassium Chloride Carbon Dioxide Anion Gap BUN Creatinine Estimated Creat Clear Cancelled Estimated GFR Cancelled 129 Glucose Cancelled 170 H Lactate 1.7 Calcium 8.8 Phosphorus Magnesium Total Bilirubin Direct Bilirubin AST ALT Alkaline Phosphatase C-Reactive Protein Total Protein Albumin TSH HCG, Quant Urine Color Urine Appearance Urine pH Ur Specific [place] Urine Protein Urine Glucose (UA) Urine Ketones Urine Blood Urine Nitrite Urine Bilirubin Urine Urobilinogen Ur Leukocyte Esterase Urine RBC Urine WBC Ur Squamous Epith Cells Urine Bacteria Urine HCG, Qual Urine Opiates Screen Ur Oxycodone Screen Urine Methadone Screen Ur Barbiturates Screen U Tricyclic Antidepress Ur Phencyclidine Scrn Ur Amphetamines Screen U Methamphetamines Scrn U Benzodiazepines Scrn Urine Cocaine Screen U Marijuana (THC) Screen Ur Drug Screen Comment SARS-CoV-2 (PCR) Influenza Type A (PCR) Influenza Type B (PCR) RSV (PCR) POC Glucose 02/24/24 02/24/24 02/24/24 20:07 20:07 20:07 WBC RBC Hgb Hct MCV MCH MCHC RDW Coeff of [place]lle Plt Count Neut % (Auto) Lymph % (Auto) [place] % (Auto) Eos % (Auto) Baso % (Auto) Neut # (Auto) Lymph # (Auto) [place] # (Auto) Eos # (Auto) Baso # (Auto) Abs Immat Gran (auto) Imm/Tot Granulo (auto) VBG pH VBG pCO2 VBG pO2 VBG HCO3 Sodium Potassium Chloride Carbon Dioxide Anion Gap Cancelled BUN Cancelled 16 Creatinine Cancelled 0.5 Estimated Creat Clear 164.45 Estimated GFR Glucose Lactate Calcium Phosphorus Magnesium Total Bilirubin Direct Bilirubin AST ALT Alkaline Phosphatase C-Reactive Protein Total Protein Albumin TSH HCG, Quant Urine Color Urine Appearance Urine pH Ur Specific [place] Urine Protein Urine Glucose (UA) Urine Ketones Urine Blood Urine Nitrite Urine Bilirubin Urine Urobilinogen Ur Leukocyte Esterase Urine RBC Urine WBC Ur Squamous Epith Cells Urine Bacteria Urine HCG, Qual Urine Opiates Screen Ur Oxycodone Screen Urine Methadone Screen Ur Barbiturates Screen U Tricyclic Antidepress Ur Phencyclidine Scrn Ur Amphetamines Screen U Methamphetamines Scrn U Benzodiazepines Scrn Urine Cocaine Screen U Marijuana (THC) Screen Ur Drug Screen Comment SARS-CoV-2 (PCR) Influenza Type A (PCR) Influenza Type B (PCR) RSV (PCR) POC Glucose 02/24/24 02/24/24 02/24/24 20:07 20:07 20:07 WBC RBC Hgb Hct MCV MCH MCHC RDW Coeff of [place]herelle Plt Count Neut % (Auto) Lymph % (Auto) [place] % (Auto) Eos % (Auto) Baso % (Auto) Neut # (Auto) Lymph # (Auto) [place] # (Auto) Eos # (Auto) Baso # (Auto) Abs Immat Gran (auto) Imm/Tot Granulo (auto) VBG pH VBG pCO2 VBG pO2 VBG HCO3 Sodium Potassium Cancelled Chloride Cancelled 107 Carbon Dioxide Cancelled 19 L Anion Gap 13 BUN Creatinine Estimated Creat Clear Estimated GFR Glucose Lactate Calcium Phosphorus Magnesium Total Bilirubin Direct Bilirubin AST ALT Alkaline Phosphatase C-Reactive Protein Total Protein Albumin TSH HCG, Quant Urine Color Urine Appearance Urine pH Ur Specific [place] Urine Protein Urine Glucose (UA) Urine Ketones Urine Blood Urine Nitrite Urine Bilirubin Urine Urobilinogen Ur Leukocyte Esterase Urine RBC Urine WBC Ur Squamous Epith Cells Urine Bacteria Urine HCG, Qual Urine Opiates Screen Ur Oxycodone Screen Urine Methadone Screen Ur Barbiturates Screen U Tricyclic Antidepress Ur Phencyclidine Scrn Ur Amphetamines Screen U Methamphetamines Scrn U Benzodiazepines Scrn Urine Cocaine Screen U Marijuana (THC) Screen Ur Drug Screen Comment SARS-CoV-2 (PCR) Influenza Type A (PCR) Influenza Type B (PCR) RSV (PCR) POC Glucose 02/24/24 02/24/24 02/24/24 20:07 20:07 17:45 WBC RBC Hgb Hct MCV MCH MCHC RDW Coeff of Cherelle Plt Count Neut % (Auto) Lymph % (Auto) [place] % (Auto) Eos % (Auto) Baso % (Auto) Neut # (Auto) Lymph # (Auto) [place] # (Auto) Eos # (Auto) Baso # (Auto) Abs Immat Gran (auto) Imm/Tot Granulo (auto) VBG pH 7.288 L VBG pCO2 45 VBG pO2 < 30.1 VBG HCO3 21 Sodium Cancelled 139 Potassium 4.4 Chloride Carbon Dioxide Anion Gap BUN Creatinine Estimated Creat Clear Estimated GFR Glucose Lactate Calcium Phosphorus Magnesium Total Bilirubin Direct Bilirubin AST ALT Alkaline Phosphatase C-Reactive Protein Total Protein Albumin TSH HCG, Quant Urine Color Urine Appearance Urine pH Ur Specific [place] Urine Protein Urine Glucose (UA) Urine Ketones Urine Blood Urine Nitrite Urine Bilirubin Urine Urobilinogen Ur Leukocyte Esterase Urine RBC Urine WBC Ur Squamous Epith Cells Urine Bacteria Urine HCG, Qual Urine Opiates Screen Ur Oxycodone Screen Urine Methadone Screen Ur Barbiturates Screen U Tricyclic Antidepress Ur Phencyclidine Scrn Ur Amphetamines Screen U Methamphetamines Scrn U Benzodiazepines Scrn Urine Cocaine Screen U Marijuana (THC) Screen Ur Drug Screen Comment SARS-CoV-2 (PCR) Influenza Type A (PCR) Influenza Type B (PCR) RSV (PCR) POC Glucose 362 H* 02/24/24 02/24/24 02/24/24 17:00 16:52 16:52 WBC 11.13 H RBC 4.94 Hgb 14.8 Hct 44.4 MCV 90 MCH 30 MCHC 33 RDW Coeff of Cherelle 12.6 Plt Count 348 Neut % (Auto) 87.5 H Lymph % (Auto) 7.0 L [place] % (Auto) 4.4 Eos % (Auto) 0.2 Baso % (Auto) 0.6 Neut # (Auto) 9.70 H Lymph # (Auto) 0.80 L [place] # (Auto) 0.50 Eos # (Auto) 0.00 Baso # (Auto) 0.10 Abs Immat Gran (auto) 0.00 Imm/Tot Granulo (auto) 0.3 VBG pH VBG pCO2 VBG pO2 VBG HCO3 Sodium Potassium Chloride Carbon Dioxide Anion Gap BUN Creatinine Estimated Creat Clear Estimated GFR Glucose Lactate Calcium 10.0 Phosphorus Magnesium 2.1 Total Bilirubin 0.9 Direct Bilirubin 0.6 H AST 26 ALT 22 Alkaline Phosphatase 141 C-Reactive Protein 0.6 Cancelled Total Protein 8.5 H Albumin 5.4 H TSH 0.781 HCG, Quant Urine Color Urine Appearance Urine pH Ur Specific [place] Urine Protein Urine Glucose (UA) Urine Ketones Urine Blood Urine Nitrite Urine Bilirubin Urine Urobilinogen Ur Leukocyte Esterase Urine RBC Urine WBC Ur Squamous Epith Cells Urine Bacteria Urine HCG, Qual Urine Opiates Screen Ur Oxycodone Screen Urine Methadone Screen Ur Barbiturates Screen U Tricyclic Antidepress Ur Phencyclidine Scrn Ur Amphetamines Screen U Methamphetamines Scrn U Benzodiazepines Scrn Urine Cocaine Screen U Marijuana (THC) Screen Ur Drug Screen Comment SARS-CoV-2 (PCR) Negative SARS-CoV-2 Influenza Type A (PCR) Negative PCR FLU A Influenza Type B (PCR) Negative PCR FLU B RSV (PCR) Negative PCR RSV POC Glucose 02/24/24 02/24/24 02/24/24 16:52 16:52 16:52 WBC RBC Hgb Hct MCV MCH MCHC RDW Coeff of Cherelle Plt Count Neut % (Auto) Lymph % (Auto) [place] % (Auto) Eos % (Auto) Baso % (Auto) Neut # (Auto) Lymph # (Auto) [place] # (Auto) Eos # (Auto) Baso # (Auto) Abs Immat Gran (auto) Imm/Tot Granulo (auto) VBG pH VBG pCO2 VBG pO2 VBG HCO3 Sodium Potassium Chloride Carbon Dioxide Anion Gap BUN Creatinine Estimated Creat Clear 137.04 Estimated GFR 123 Cancelled Glucose 490 H* Cancelled Lactate 3.6 H Calcium Cancelled Phosphorus Magnesium Total Bilirubin Direct Bilirubin AST ALT Alkaline Phosphatase C-Reactive Protein Total Protein Albumin TSH HCG, Quant Urine Color Urine Appearance Urine pH Ur Specific [place] Urine Protein Urine Glucose (UA) Urine Ketones Urine Blood Urine Nitrite Urine Bilirubin Urine Urobilinogen Ur Leukocyte Esterase Urine RBC Urine WBC Ur Squamous Epith Cells Urine Bacteria Urine HCG, Qual Urine Opiates Screen Ur Oxycodone Screen Urine Methadone Screen Ur Barbiturates Screen U Tricyclic Antidepress Ur Phencyclidine Scrn Ur Amphetamines Screen U Methamphetamines Scrn U Benzodiazepines Scrn Urine Cocaine Screen U Marijuana (THC) Screen Ur Drug Screen Comment SARS-CoV-2 (PCR) Influenza Type A (PCR) Influenza Type B (PCR) RSV (PCR) POC Glucose 02/24/24 02/24/24 02/24/24 16:52 16:52 16:52 WBC RBC Hgb Hct MCV MCH MCHC RDW Coeff of Cherelle Plt Count Neut % (Auto) Lymph % (Auto) [place] % (Auto) Eos % (Auto) Baso % (Auto) Neut # (Auto) Lymph # (Auto) [place] # (Auto) Eos # (Auto) Baso # (Auto) Abs Immat Gran (auto) Imm/Tot Granulo (auto) VBG pH VBG pCO2 VBG pO2 VBG HCO3 Sodium Potassium Chloride Carbon Dioxide Anion Gap 25 H BUN 17 Cancelled Creatinine 0.6 Cancelled Estimated Creat Clear Cancelled Estimated GFR Glucose Lactate Calcium Phosphorus Magnesium Total Bilirubin Direct Bilirubin AST ALT Alkaline Phosphatase C-Reactive Protein Total Protein Albumin TSH HCG, Quant Urine Color Urine Appearance Urine pH Ur Specific [place] Urine Protein Urine Glucose (UA) Urine Ketones Urine Blood Urine Nitrite Urine Bilirubin Urine Urobilinogen Ur Leukocyte Esterase Urine RBC Urine WBC Ur Squamous Epith Cells Urine Bacteria Urine HCG, Qual Urine Opiates Screen Ur Oxycodone Screen Urine Methadone Screen Ur Barbiturates Screen U Tricyclic Antidepress Ur Phencyclidine Scrn Ur Amphetamines Screen U Methamphetamines Scrn U Benzodiazepines Scrn Urine Cocaine Screen U Marijuana (THC) Screen Ur Drug Screen Comment SARS-CoV-2 (PCR) Influenza Type A (PCR) Influenza Type B (PCR) RSV (PCR) POC Glucose 02/24/24 02/24/24 02/24/24 16:52 16:52 16:52 WBC RBC Hgb Hct MCV MCH MCHC RDW Coeff of Cherelle Plt Count Neut % (Auto) Lymph % (Auto) [place] % (Auto) Eos % (Auto) Baso % (Auto) Neut # (Auto) Lymph # (Auto) [place] # (Auto) Eos # (Auto) Baso # (Auto) Abs Immat Gran (auto) Imm/Tot Granulo (auto) VBG pH VBG pCO2 VBG pO2 VBG HCO3 Sodium Potassium 4.8 Chloride 97 Cancelled Carbon Dioxide 12 L Cancelled Anion Gap Cancelled BUN Creatinine Estimated Creat Clear Estimated GFR Glucose Lactate Calcium Phosphorus Magnesium Total Bilirubin Direct Bilirubin AST ALT Alkaline Phosphatase C-Reactive Protein Total Protein Albumin TSH HCG, Quant Urine Color Urine Appearance Urine pH Ur Specific [place] Urine Protein Urine Glucose (UA) Urine Ketones Urine Blood Urine Nitrite Urine Bilirubin Urine Urobilinogen Ur Leukocyte Esterase Urine RBC Urine WBC Ur Squamous Epith Cells Urine Bacteria Urine HCG, Qual Urine Opiates Screen Ur Oxycodone Screen Urine Methadone Screen Ur Barbiturates Screen U Tricyclic Antidepress Ur Phencyclidine Scrn Ur Amphetamines Screen U Methamphetamines Scrn U Benzodiazepines Scrn Urine Cocaine Screen U Marijuana (THC) Screen Ur Drug Screen Comment SARS-CoV-2 (PCR) Influenza Type A (PCR) Influenza Type B (PCR) RSV (PCR) POC Glucose 02/24/24 02/24/24 02/24/24 16:52 16:52 16:33 WBC RBC Hgb Hct MCV MCH MCHC RDW Coeff of [place]herelle Plt Count Neut % (Auto) Lymph % (Auto) [place] % (Auto) Eos % (Auto) Baso % (Auto) Neut # (Auto) Lymph # (Auto) [place] # (Auto) Eos # (Auto) Baso # (Auto) Abs Immat Gran (auto) Imm/Tot Granulo (auto) VBG pH 7.219 L* VBG pCO2 40 VBG pO2 38.5 VBG HCO3 17 L Sodium 134 L Cancelled Potassium Cancelled Chloride Carbon Dioxide Anion Gap BUN Creatinine Estimated Creat Clear Estimated GFR Glucose Lactate Calcium Phosphorus Magnesium Total Bilirubin Direct Bilirubin AST ALT Alkaline Phosphatase C-Reactive Protein Total Protein Albumin TSH HCG, Quant Urine Color Yellow Urine Appearance Clear Urine pH 6.0 Ur Specific [place] >= 1.030 Urine Protein 1+ A Urine Glucose (UA) Trace A Urine Ketones 4+ A Urine Blood 1+ A Urine Nitrite Negative Urine Bilirubin Negative Urine Urobilinogen 0.2 Ur Leukocyte Esterase Negative Urine RBC 0-2 Urine WBC 0-2 Ur Squamous Epith Cells None Urine Bacteria None Urine HCG, Qual Negative Urine Opiates Screen Negative Ur Oxycodone Screen Negative Urine Methadone Screen Negative Ur Barbiturates Screen Negative U Tricyclic Antidepress Negative Ur Phencyclidine Scrn Negative Ur Amphetamines Screen Negative U Methamphetamines Scrn Negative U Benzodiazepines Scrn Negative Urine Cocaine Screen Negative U Marijuana (THC) Screen POSITIVE A Ur Drug Screen Comment See Note SARS-CoV-2 (PCR) Influenza Type A (PCR) Influenza Type B (PCR) RSV (PCR) POC Glucose Preliminary micro results at discharge 02/24/24 16:33 Urine Culture - Preliminary Urine,Clean Catch No growth. Discharge Plan Discharge Disposition: Home, Self-Care Date of Admission: 02/24/24 21:32 Attending Provider on Discharge: Lee Foster Primary Care Provider: Delia Yu I Condition: Guarded Anticipated Discharge Date/Time: 02/25/24 14:00 Discharge Medications: Continued insulin lispro [Humalog U-100 Insulin] 100 unit/mL solution 60 - 80 unit subcut DAILY (DME) Dexcom G6 Sensor Device See Rx Instructions .ROUTE [id number] Qty: 1 Rx Instructions: As directed (DME) Dexcom G6 Transmitter Device See Rx Instructions .ROUTE [id number] Qty: 1 Rx Instructions: As directed promethazine 12.5 mg tablet 12.5 mg PO QID tretinoin [Retin-A] 0.05 % cream 1 applic topical QPM clonidine HCl 0.1 mg tablet 0.2 mg PO HS lamotrigine 200 mg tablet 200 mg PO HS Rx Instructions: plus 50 mg dose lamotrigine 25 mg tablet 50 mg PO HS spironolactone 50 mg tablet 50 mg PO HS Discharge Orders: Discharge Order (Routine); Ordered 02/25/24 Ordered By: Lee Foster Activity Level: No Restrictions Discharge Diet: Diabetic Follow Up Appointments: Mitch Naqvi MBBS [Referring] - (follow up as previously scheduled) Delia Yu MD [Primary Care Provider] - Forms: Vinted Info Instructions
[2024-02-25] MEDS: ONDANSETRON 2 MG/ML inj 4 MG IVP (14:36)
--- NOTE | 2024-02-25 17:09 | PC.NURSE ---
DC: Pt alert, oriented and vitally stable. Iv removed, tip intact. Up IND, tolerates well. Pt education given, topics including diabetes management, medication and follow up, pt dc home with spouse at 1628.
== END 2024-02-25 16:28 | disposition home or self-care (01) | DRG 638 ==
LOC: ED 18:23 → MEDSURG 18:33
PROVIDERS: Admitting Provider Family Medicine; Emergency Provider Family Medicine; PCP Family Medicine; Visit Provider Family Medicine
DX: E10.10 Type 1 diabetes mellitus with ketoacidosis without coma (principal); F31.81 Bipolar II disorder; E10.43 Type 1 diabetes mellitus with diabetic autonomic (poly)neuropathy; E10.65 Type 1 diabetes mellitus with hyperglycemia; K31.84 Gastroparesis; Z79.4 Long term (current) use of insulin; F41.9 Anxiety disorder, unspecified; E10.319 Type 1 diabetes mellitus with unspecified diabetic retinopathy without macular edema; F10.90 Alcohol use, unspecified, uncomplicated; F50.9 Eating disorder, unspecified; F12.90 Cannabis use, unspecified, uncomplicated; E78.5 Hyperlipidemia, unspecified
CPT/HCPCS: 36415; 80048; 80076; 80306; 81001; 81003; 81025; 82803; 82947; 82962; 83605; 83735; 84100; 84443; 84702; 85025; 86140; 87086; 87631; 93005; 99285; 99291; A9270; J1815; J2405; J3590; J7030

== ENCOUNTER 2025-02-11 13:43 | Outpatient (CLI) | payer MEDICARE, MEDICAID, SELFPAY ==
--- NOTE | 2025-02-11 14:00 | CRLHL7_ITS ---
For Patients: As a result of the Century Cures Act, medical imaging exams and procedure reports are released immediately into your electronic medical record. You may view this report before your referring provider. If you have questions, please contact your health care provider. Indication: LOW BACK AND LEFT HIP PAIN POST FALL 02/05/25. EVAL FOR OCCULT FRACTURE/HEMATOMA/? Technique: Noncontrast CT pelvis Please note that all CT scans at this facility use dose modulation, iterative reconstruction, and/or weight-based dosing when appropriate to reduce radiation dose to as low as reasonably achievable. Comparison: Radiographs 02/07/2025 Findings: IUD is present in good position within the uterus. No pelvic mass. Bladder normal. Visualized bowel loops unremarkable. No free air or free fluid. A few scattered sub cm left inguinal lymph nodes are present, likely incidental. No fracture is present. Incidental bone island in the left sacrum. Alignment unremarkable. Joint spaces are maintained. Impression: No pelvic or left hip fracture. Please note that all CT scans at this facility use dose modulation, iterative reconstruction, and/or weight-based dosing when appropriate to reduce radiation dose to as low as reasonably achievable. Dictated by Raheem Woods MD @ 02/11/2025 3:59:18 PM (Electronically Signed)
== END 2025-02-11 13:44 | disposition home or self-care (01) ==
LOC: CT 13:45
PROVIDERS: PCP Family Medicine; Visit Provider Physician Assistant Surgical
DX: M54.50 Low back pain, unspecified (principal); M25.552 Pain in left hip
CPT/HCPCS: 72192